=== PATIENT | male | born 1945 | race Two or more races ===

== ENCOUNTER 2020-10-02 11:05 | Outpatient (REF) | payer MEDICARE, SELFPAY | END 2020-10-02 11:06 | disposition home or self-care (01) | LOC: HO.LAB 11:05 | PROVIDERS: Visit Provider Internal Medicine | DX: Z13.89 Encounter for screening for other disorder (principal) ==

== ENCOUNTER 2022-03-17 11:41 | Emergency (ER) | payer MEDICARE, SELFPAY ==
[2022-03-17 11:57] VITALS: BP 156/72; PULSE 86; RESP 17; TEMP 36.6; O2SAT 97; BMI 26.6
[2022-03-17 12:33] LABS: Influenza A Negative (Negative); Influenza B2 Negative (Negative)
[2022-03-17 12:38] LABS: COVID-19 Test Negative (Negative)
--- NOTE | 2022-03-17 13:16 | ED.URI ---
HPI - URI/Sore Throat General Chief Complaint: Upper Respiratory Symptoms Stated Complaint: pollen in nose Time Seen by Provider: 03/17/22 13:16 Source: patient Mode of arrival: ambulatory History of Present Illness HPI Narrative: 76-year-old male with past medical history of bronchitis, COPD, GERD, BPH, anxiety, presenting to the ED complaining of polyp to right side of nose x2 weeks. Admits saw PCP last week who prescribed a nasal spray however patient denies symptomatic improvement. Reports mild SOB at night. Denies difficulty breathing, shortness of breath at present, trauma to face/nose, bleeding. Related Data Home Medications Medication Instructions Recorded Confirmed hydroxyzine HCl 10 mg tablet 10 mg PO TID 07/26/20 loratadine 10 mg tablet 10 mg PO DAILY 09/27/20 09/27/20 omeprazole 20 mg capsule,delayed 20 mg PO DAILY PRN 09/27/20 09/27/20 release Previous Rx's Medication Instructions Recorded ipratropium 20 mcg-albuterol 100 1 puff inhalation Q6H PRN 09/27/20 mcg/actuation mist for inhalation shortness of breath 30 days #4 (Combivent Respimat) grams lisinopril 10 mg tablet 10 mg PO DAILY #90 tabs 07/10/21 nortriptyline 10 mg capsule 10 mg PO BEDTIME #90 caps 12/10/21 Allergies Allergy/AdvReac Type Severity Reaction Status Date / Time aspirin [ASA] Allergy Unknown Rash Verified 03/17/22 11:57 Review of Systems Review of Systems: Constitutional: No Weight loss, No Fever, No Chills ENT/Mouth: No Ear Pain, + Nasal Congestion, +nasal polyp, No Sinus Pain, No Hoarseness, No sore throat, No Rhinorrhea, No Swallowing Difficulty Cardiovascular: No Chest Pain, No SOB Respiratory: No Cough, No Sputum, No Wheezing Gastrointestinal: No Nausea, No Vomiting, No Diarrhea, No Constipation, No Abdominal pain Genitourinary: No Dysuria, No Urinary Frequency, No Urinary Incontinence/retention Musculoskeletal: No joint pain, No Myalgias, No Joint Swelling Skin: No Skin Lesions, No rash Neuro: No Weakness, No Numbness, No Paresthesias Yes all other systems are reviewed and are negative PMFSH Past Medical History Attestation statement: The following information was validated with the patient. Surgical History History of appendectomy History of inguinal hernia repair History of prostatectomy Family History Family History Other Family history non-contributory Social History Social History Alcohol intake: never Advance Directives: No Advance Directives Information Provided: No Physical Exam Vital Signs: Vital Signs: Last Vital Signs Temp 97.8 F 03/17/22 11:57 Pulse 86 03/17/22 11:57 Resp 17 03/17/22 11:57 BP 156/72 H 03/17/22 11:57 Pulse Ox 97 03/17/22 11:57 O2 Del Method 03/17/22 11:57 BMI result Body Mass Index 26.6 Const: General: cooperative, healthy appearing and no acute distress Orientation/consciousness: patient oriented x3 Limitations: no limitations HEENT: Head: Yes normal to inspection and Yes atraumatic Ears: hearing grossly normal bilaterally General nose exam: Normal external nose present, Abnormal nasal septum present, no nasal discharge noted and Nasal polyp present on the right (large. No active bleeding) Face and sinus: Yes normal facial exam Mouth: Normal oral and palatal mucosa present Throat: Yes posterior oropharynx normal, Yes tonsils normal and Yes uvula midline Eyes: General: appearance normal, both eyes and all related structures EOM: EOMs intact bilaterally Neck: Neck: Yes normal visual inspection, Yes no meningeal signs, Yes trachea midline and No anterior neck swelling Resp: Effort & Inspection: normal respiratory effort, no nasal flaring, no respiratory distress and no stridor Auscultation: clear to auscultation bilaterally Cardio: Rate: regular rate Heart sounds: S1 normal heart sound present and S2 normal heart sound present Skin: Rashes: no rashes Wounds: no wounds Neuro: General: patient oriented x3, tone normal and no meningeal signs Gait exam (Neuro): Normal gait present Extrem: General: Yes normal to inspection MDM - URI/Sore Throat MDM Narrative Medical decision making narrative: 76-year-old male with past medical history of bronchitis, COPD, GERD, BPH, anxiety, presenting to the ED complaining of polyp to right side of nose x2 weeks. On exam vital signs stable, NAD, nontoxic appearing, large right-sided nasal polyp noted. No evidence of infection, no respiratory distress. Discussed with patient he needs to follow-up with ENT for likely polypectomy Encourage continued use of nasal spray and antihistamine Medical Records Attestation: I reviewed the patient's medical records. Lab Data Attestation: I reviewed the patient's lab results. Labs: Lab Results 03/17/22 03/17/22 Range/Units 12:06 12:06 COVID-19 (THOMAS) Negative (Negative) COVID-19 Clin Com See Note Influenza Type A (ALEX) Negative (Negative) Influenza Type B (ALEX) Negative (Negative) Influenza A & B Note See Note Discharge Plan Discharge Clinical Impression: Nasal polyps Patient Disposition: Home, Self-Care Instructions: Nasal Polyps (ED) Additional Instructions: Continue using previously prescribed nasal spray. In addition you should take Zyrtec or Claritin during the day. You really need to see an ear nose throat specialist, call tomorrow to start making appointments. If you develop and difficulty breathing, bleeding from the polyps please return to the ED Prescriptions: No Action lisinopril 10 mg tablet 10 mg PO DAILY Qty: 90 0RF nortriptyline 10 mg capsule 10 mg PO BEDTIME Qty: 90 0RF hydroxyzine HCl 10 mg tablet 10 mg PO TID omeprazole 20 mg capsule,delayed release(DR/EC) 20 mg PO DAILY PRN loratadine 10 mg tablet 10 mg PO DAILY Combivent Respimat 20-100 mcg/actuation mist 1 puff inhalation Q6H PRN (Reason: shortness of breath) 30 Days Qty: 4 12RF Referrals: Karla Haney MD [Physician] - Nat Clement PA [Physician Endocrinology Physician] - Freddie Gil MD [Physician] - Dayan Swain PA-C [Physician Endocrinology Physician] - John Wei [Physician] - Interventions: ED Discharge Assessment Last Done: 03/17/22 13:29 Discharge Date/Time: 03/17/22 13:30
== END 2022-03-17 13:30 | disposition home or self-care (01) ==
PROVIDERS: Emergency Provider Emergency Medicine Emergency Medical Services; PCP Internal Medicine
DX: J33.9 Nasal polyp, unspecified (principal); Z20.822 Contact with and (suspected) exposure to COVID-19; Z79.899 Other long term (current) drug therapy
CPT/HCPCS: 87502; 87635; 99282; 99283

== ENCOUNTER 2022-04-04 10:19 | Emergency (ER) | payer MEDICARE, SELFPAY ==
[2022-04-04 10:50] VITALS: BP 159/88; PULSE 96; RESP 16; TEMP 36.1; O2SAT 97; BMI 26.3
--- NOTE | 2022-04-04 11:00 | ED_ITS ---
HPI - General Adult General Chief complaint: General Medical Stated complaint: issue with nose Time Seen by Provider: 04/04/22 10:53 History of Present Illness HPI narrative: 76-year-old male with past medical history of bronchitis, COPD, GERD, BPH, anxiety, presenting to the ED complaining of polyp to right side of nose x5 weeks.? He was prescribed a nasal spray however patient denies symptomatic improvement.? Reports mild SOB at night.? Denies difficulty breathing, shortness of breath at present, trauma to face/nose, bleeding. Patient was seen here 03/17/2022, 3 weeks ago for the same complaint, at that time he was counseled to continue nasal spray and referred to Ear Nose Throat Patient tells me that he has an appointment with an Ear Nose Throat in spring from [place] but not until May 29, and his symptoms are worsening Related Data Home Medications Medication Instructions Recorded Confirmed hydroxyzine HCl 10 mg tablet 10 mg PO TID 07/26/20 loratadine 10 mg tablet 10 mg PO DAILY 09/27/20 09/27/20 omeprazole 20 mg capsule,delayed 20 mg PO DAILY PRN 09/27/20 09/27/20 release Previous Rx's Medication Instructions Recorded ipratropium 20 mcg-albuterol 100 1 puff inhalation Q6H PRN 09/27/20 mcg/actuation mist for inhalation shortness of breath 30 days #4 (Combivent Respimat) grams lisinopril 10 mg tablet 10 mg PO DAILY #90 tabs 07/10/21 nortriptyline 10 mg capsule 10 mg PO BEDTIME #90 caps 12/10/21 Allergies Allergy/AdvReac Type Severity Reaction Status Date / Time aspirin [ASA] Allergy Unknown Rash Verified 03/17/22 11:57 Review of Systems Constitutional: Constitutional: Denies body ache(s), Denies chills, Denies fatigue, Denies fever(s), Denies headache(s), Denies malaise and Denies weakness Eyes: Eyes: Denies diplopia ENT: Denies vertigo, Denies dizziness, Denies otalgia, Denies facial pain, Denies headache(s), Denies mouth pain, Denies nasal congestion, Denies nasal discharge, Reports nasal obstruction, Denies nasal trauma, Denies neck pain, Denies post nasal drip, Denies sinus pain, Denies sinus pressure, Denies sore throat and Denies throat swelling Cardiovascular: Cardiovascular: Denies chest pain, Denies syncope, Denies leg edema, Denies lightheadedness, Denies Loss of Consciousness, Denies palpitations and Denies dyspnea Respiratory: Respiratory: Denies chest congestion, Denies cough and Denies dyspnea Gastrointestinal: Gastrointestinal: Denies abdominal pain, Denies hematochezia, Denies constipation, Denies diarrhea and Denies vomiting Musculoskeletal: Musculoskeletal: Reports no additional musculoskeletal complaints and Denies neck pain Neurologic: Denies confusion, Denies vertigo, Denies dizziness, Denies syncope, Denies headache(s) and Denies weakness Psychiatric: Psychiatric: Denies anxiety, Denies confusion and Denies depression Endocrine: Endocrine: Denies fatigue and Denies palpitations Allergic/Immunologic: Allergic/Immunologic: Denies throat swelling PMFSH Past Medical History Medical History Anxiety Benign essential hypertension Benign prostatic hyperplasia Bronchitis COPD (chronic obstructive pulmonary disease) GERD without esophagitis Insomnia Overweight (BMI 25.0-29.9) Surgical History History of appendectomy History of inguinal hernia repair History of prostatectomy Family History Family History Other Family history non-contributory Social History Social History Alcohol intake: never Advance Directives: No Advance Directives Information Provided: Yes Physical Exam ED Vital Signs: Vital Signs - 24 hr 04/04/22 10:50 Temperature 97 F Pulse Rate 96 Respiratory Rate 16 Blood Pressure 159/88 H Pulse Oximetry 97 Oxygen Delivery Method Room Air BMI result Body Mass Index 26.3 Const General: No confusion Nutritional Appearance: well nourished Orientation/consciousness: No confusion Limitations: no limitations HENMT Head: Yes normal to inspection, Yes normocephalic and Yes atraumatic Ears: hearing grossly normal bilaterally, external ears normal, TM's normal bilaterally and EAC's normal General nose exam: Nasal polyp present on the right Face and sinus: Yes normal facial exam and Yes sinuses nontender Face images: 1. nasal polyp Mouth: Normal oral and palatal mucosa present Throat: Yes posterior oropharynx normal Eyes Conjunctivae: conjunctivae normal Pupils: Equal, round and reactive pupils present EOM: EOMs intact bilaterally Neck Neck: Yes full ROM, Yes no lymphadenopathy and Yes supple Resp Effort & Inspection: normal respiratory effort and able to speak in complete sentences Auscultation: clear to auscultation bilaterally, no crackles, no rales, no rhonchi and no wheezes Cardio Rate: regular rate Rhythm: regular rhythm Heart sounds: S1 normal heart sound present and S2 normal heart sound present GI Inspection: Yes normal to inspection Palpation (GI): Soft to palpation, nontender, no guarding and not rigid Percussion: Yes normal to percussion Auscultation: normal bowel sounds Skin General skin exam: no rashes or lesions noted Neuro General: No confusion Cranial nerves: Yes Equal, round and reactive pupils present Extrem General: Yes normal to inspection and Yes full ROM Psych Appearance: grossly normal Affect: normal affect Attitude: cooperative Thought process: Normal thought process present Course Course Course Narrative: 76-year-old male with worsening right-sided nasal polyps who is here for help to get an Ear Nose Throat referral, as the referral he has is not until the end of April On exam, patient has stable vitals, is well appearing, has a right nasal polyp that is not bleeding. We were able to obtain an Ear Nose Throat appointment with today at 13:00 Insurance information was given to Dr. Wei's office via nurse Patient was given directions to their office Discharge Plan Discharge Clinical Impression: Nasal cavity polyp Patient Disposition: Home, Self-Care Additional Instructions: Please go to ENT Dr Wei's office here in [place] today at 1 pm. Please return to the emergency room for any new or concerning symptoms Prescriptions: No Action lisinopril 10 mg tablet 10 mg PO DAILY Qty: 90 0RF nortriptyline 10 mg capsule 10 mg PO BEDTIME Qty: 90 0RF hydroxyzine HCl 10 mg tablet 10 mg PO TID omeprazole 20 mg capsule,delayed release(DR/EC) 20 mg PO DAILY PRN loratadine 10 mg tablet 10 mg PO DAILY Combivent Respimat 20-100 mcg/actuation mist 1 puff inhalation Q6H PRN (Reason: shortness of breath) 30 Days Qty: 4 12RF Interventions: ED Discharge Assessment Last Done: 04/04/22 11:40 Discharge Date/Time: 04/04/22 11:42
== END 2022-04-04 11:42 | disposition home or self-care (01) ==
PROVIDERS: Emergency Provider Emergency Medicine; PCP Internal Medicine
DX: J33.9 Nasal polyp, unspecified (principal); Z79.899 Other long term (current) drug therapy
CPT/HCPCS: 99282

== ENCOUNTER 2023-08-14 15:06 | Emergency (ER) | payer MEDICARE, SELFPAY ==
--- NOTE | ~2023-08-14 | US_ITS ---
EXAMINATION: ULTRASOUND OF THE ACHILLES TENDON CLINICAL INFORMATION: Single gastrocnemius tear/Achilles tendon rupture COMPARISON: None available. TECHNIQUE: Ultrasound of the area of clinical concern was performed. FINDINGS: The Achilles tendon appears normal without evidence of tear. There is DVT present with thrombus in the gastrocnemius vein. US/US extremity nonvascular IMPRESSION: 1. The Achilles tendon appears normal. 2. There is DVT in the gastrocnemius vein.
[2023-08-14 15:40] VITALS: BP 155/74; PULSE 95; RESP 18; TEMP 36.9; O2SAT 96; BMI 26.6
--- NOTE | 2023-08-14 15:43 | ED.GENADULT ---
HPI - General Adult General Chief complaint: Extremity Injury, Lower Stated complaint: left leg pain Time Seen by Provider: 08/14/23 16:56 Source: patient, RN notes reviewed and old records reviewed Mode of arrival: ambulatory History of Present Illness HPI narrative: 77-year-old male with a past medical history of anxiety, insomnia, GERD, COPD, HTN, bronchitis, presenting to the ED complaining of left calf pain and swelling s/p chasing dog this morning and striking leg outstretched on guardrail. Denies injury to other area, trauma or LOC. Has been minimally ambulatory since incident. Denies numbness, tingling, weakness Onset (ago): hour(s) Related Data Home Medications Medication Instructions Recorded Confirmed hydroxyzine HCl 10 mg tablet 10 mg PO TID 07/26/20 loratadine 10 mg tablet 10 mg PO DAILY 09/27/20 09/27/20 omeprazole 20 mg capsule,delayed 20 mg PO DAILY PRN 09/27/20 09/27/20 release Previous Rx's Medication Instructions Recorded ipratropium 20 mcg-albuterol 100 1 puff inhalation Q6H PRN 09/27/20 mcg/actuation mist for inhalation shortness of breath 30 days #4 (Combivent Respimat) grams lisinopril 10 mg tablet 10 mg PO DAILY #90 tabs 07/10/21 nortriptyline 10 mg capsule 10 mg PO BEDTIME #90 caps 12/10/21 Allergies Allergy/AdvReac Type Severity Reaction Status Date / Time aspirin [ASA] Allergy Unknown Rash Verified 08/14/23 15:45 Review of Systems Review of Systems: Constitutional: No Fever, No Chills ENT/Mouth: No Ear Pain, No Nasal Congestion, No sore throat Cardiovascular: No Chest Pain, No SOB Respiratory: No Cough Gastrointestinal: No Nausea, No Vomiting, No Abdominal pain Musculoskeletal: + joint pain, No Myalgias, + Joint Swelling Skin: No Skin Lesions, No rash Neuro: No Weakness, No Numbness, No Paresthesias Yes all other systems are reviewed and are negative Constitutional: Constitutional: Reports as per [facility] Past Medical History Attestation statement: The following information was validated with the patient. Source: old records reviewed Medical History Anxiety Insomnia Overweight (BMI 25.0-29.9) Benign prostatic hyperplasia GERD without esophagitis COPD (chronic obstructive pulmonary disease) Benign essential hypertension Bronchitis Surgical History History of inguinal hernia repair History of prostatectomy History of appendectomy Family History Family History Other Family history non-contributory Social History Social History Alcohol intake: never Advance Directives: No Advance Directives Information Provided: No Physical Exam ED Vital Signs: Vital Signs - 24 hr 08/14/23 15:40 Temperature 98.5 F Pulse Rate 95 Respiratory Rate 18 Blood Pressure 155/74 H Pulse Oximetry 96 Oxygen Delivery Method Room Air BMI result Body Mass Index 26.6 Const General: cooperative, healthy appearing, no acute distress, alert and awake Orientation/consciousness: patient oriented x3 Limitations: no limitations HENMT Head: Yes normal to inspection and Yes atraumatic Ears: hearing grossly normal bilaterally General nose exam: Normal external nose present Face and sinus: Yes normal facial exam Eyes General: appearance normal, both eyes and all related structures EOM: EOMs intact bilaterally Neck Neck: Yes normal visual inspection and Yes no meningeal signs Resp Effort & Inspection: normal respiratory effort and no respiratory distress Cardio Rate: regular rate Peripheral pulses: Peripheral pulses 2+ throughout Skin Rashes: no rashes Wounds: no wounds Neuro General: patient oriented x3, tone normal and no meningeal signs Cranial nerves: Yes CN's II-XII intact bilaterally Gait exam (Neuro): Normal gait present Extrem Other: Left knee and anterior tib/fib/ankle and foot nontender. Left calf with noted swelling and tenderness > proximal region. No pitting edema. No erythema/warmth or crepitus. Compartments soft. Neurovascular intact distally Achilles tendon nontender. Negative Richard test. Course Course Course Narrative: This is an RME: Additional HPI, ROS, PE not included below will be deferred to primary provider. 77 year old male presents w/ left calf pain s/p jumping while chasing his dog patient didnt fall. Reports 06/08 pain Plan- [facility] 190--US extremity nonvascular IMPRESSION: 1. The Achilles tendon appears normal. 2. There is DVT in the gastrocnemius vein. -labs reassuring > will initiate patient on Eliquis starter pack with hematology follow-up Results discussed with patient including worrisome signs and symptoms and strict return precautions, and when to return to the emergency department. They verbalized understanding and feel safe for discharge at this time. Medical Decision Making Medical Decision Making [facility] Narrative: 77-year-old male with a past medical history of anxiety, insomnia, GERD, COPD, HTN, bronchitis, presenting to the ED complaining of left calf pain and swelling s/p chasing dog this morning and striking leg outstretched on guardrail. On exam vital signs stable, NAD, nontoxic appearing, physical exam as noted above. Concern for gastrocnemius muscle tear vs Achilles tendon injury vs MSK pain/strain. Lower suspicion for fracture. Unlikely DVT with mechanism of injury. Compartments soft. No evidence of compartment syndrome at this time or cellulitis Plan: Ultrasound Please refer to course for remaining clinical decision making, interpretation of labs/imaging results, and discussions with consultants and/or family members. Differential Diagnosis Differential Diagnoses: The differential diagnosis associated with the presentation includes As above Lab Data [facility] Lab Attestation statement: I reviewed the patient's lab results. 08/14/23 18:22 08/14/23 18:22 Labs: Lab Results 08/14/23 Range/Units 18:22 WBC 7.2 (4.8-10.8) X10*3/uL RBC 4.52 L (4.60-5.80) X10*6/uL Hgb 13.0 L (14.0-18.0) g/dl Hct 39.0 L (42.0-52.0) % MCV 86.3 (80.0-98.0) fL MCH 28.8 (27.0-33.0) pg MCHC 33.3 (31.0-36.0) g/dl RDW 12.9 (11.0-16.0) % Plt Count 197 (160-400) X10*3/uL MPV 9.1 L (9.4-12.4) fL Immature Gran % (Auto) 0.3 (0.0-0.4) % Neut % (Auto) 59.8 (45-73) % Lymph % (Auto) 29.6 (20-40) % [place] % (Auto) 8.4 (2-11) % Eos % (Auto) 1.5 (0-4) % Baso % (Auto) 0.4 (0-2) % Lymph # (Auto) 2.1 (1.2-4.9) X10*3/uL [place] # (Auto) 0.6 (0.1-1.2) X10*3/uL Eos # (Auto) 0.1 (0.0-0.4) X10*3/uL Baso # (Auto) 0.0 (0.0-0.2) X10*3/uL Abs Immat Gran (auto) 0.02 (0.00-0.03) X10*3/uL Absolute Neuts (auto) 4.3 (2.0-8.3) x10*3/uL Absolute Nucleated RBC 0.000 (0.0-0.012) X10*3/uL Nucleated RBC % (auto) 0.0 (0.0-0.2) /100WBC PT 11.5 (11.1-13.3) SEC INR 0.9 (0.9-1.1) APTT 28.4 (26.0-36.4) SEC Sodium 141 (135-145) mmol/L Potassium 4.4 (3.3-5.1) mmol/L Chloride 106 (96-108) mmol/L Carbon Dioxide 27 (22-29) mmol/L Anion Gap 12 (12-20) BUN 14 (9-16) mg/dL Creatinine 1.17 (0.5-1.4) mg/dL Estim Creat Clear Calc 50.2 Estimated GFR > 60 Random Glucose 92 (60-115) mg/dL Calcium 9.7 (8.4-10.2) mg/dL Independent Interpretation I performed an independent interpretation of an: Ultrasound Radiology Impression Discussion of test interpretation with radiology: I have reviewed the radiologist's reading. External Record Review External record reviewed: Inpatient record, Office record, Outpatient record, Prior outpatient labs, Prior outpatient radiology, Primary care record and Outside ED record Tests considered The following testing was considered but not selected: As above Prescription Management I considered prescription management with: Pain Medication Discharge Plan Discharge Clinical Impression: Pain of left calf, Injury of leg, left Patient Disposition: Still a Patient Prescriptions: No Action lisinopril 10 mg tablet 10 mg PO DAILY Qty: 90 0RF nortriptyline 10 mg capsule 10 mg PO BEDTIME Qty: 90 0RF hydroxyzine HCl 10 mg tablet 10 mg PO TID omeprazole 20 mg capsule,delayed release(DR/EC) 20 mg PO DAILY PRN loratadine 10 mg tablet 10 mg PO DAILY Combivent Respimat 20-100 mcg/actuation mist 1 puff inhalation Q6H PRN (Reason: shortness of breath) 30 Days Qty: 4 12RF
[2023-08-14 18:35] LABS: MANUAL DIFF FLAG NO
[2023-08-14 18:47] LABS: Basophils Percent Auto 0.4 % (0-2); Eosinophils Absolute Auto 0.1 X10*3/uL (0.0-0.4); Eosinophils Percent Auto 1.5 % (0-4); Imm Gran Abs Auto 0.02 X10*3/uL (0.00-0.03); Imm Gran Pct Auto 0.3 % (0.0-0.4); Lymphocytes Absolute Auto 2.1 X10*3/uL (1.2-4.9); Lymphocytes Percent Auto 29.6 % (20-40); Mean Corpuscular HGB Conc 33.3 g/dl (31.0-36.0); Mean Corpuscular Hemoglobin 28.8 pg (27.0-33.0); Mean Corpuscular Volume 86.3 fL (80.0-98.0); Mean Platelet Volume 9.1 fL (9.4-12.4); Monocytes Absolute Auto 0.6 X10*3/uL (0.1-1.2); Monocytes Percent Auto 8.4 % (2-11); Neutrophils Absolute Auto 4.3 x10*3/uL (2.0-8.3); Neutrophils Percent Auto 59.8 % (45-73); Platelet Count 197 X10*3/uL (160-400); Red Blood Count 4.52 X10*6/uL (4.60-5.80); Red Cell Distribution Width 12.9 % (11.0-16.0); White Blood Count 7.2 X10*3/uL (4.8-10.8)
[2023-08-14 18:50] LABS: Anion Gap 12 (12-20); Blood Urea Nitrogen 14 mg/dL (9-16); Calcium 9.7 mg/dL (8.4-10.2); Carbon Dioxide 27 mmol/L (22-29); Chloride 106 mmol/L (96-108); Creatinine Clr Calc Pharmacy 50.2; Estimated Glomerular Filt Rate > 60; Glucose Random 92 mg/dL (60-115); Potassium 4.4 mmol/L (3.3-5.1); Sodium 141 mmol/L (135-145)
[2023-08-14 18:53] LABS: INTERNATIONAL NORM RATIO 0.9 (0.9-1.1); Prothrombin Time 11.5 SEC (11.1-13.3)
[2023-08-14 18:55] LABS: Partial Thromboplastin Time 28.4 SEC (26.0-36.4)
[2023-08-14] MEDS: Apixaban 5 MG TABLET 10 MG PO (19:21)
== END 2023-08-14 19:29 | disposition home or self-care (01) ==
PROVIDERS: Physician Assistant; Emergency Provider Emergency Medicine; PCP Internal Medicine
DX: M79.662 Pain in left lower leg (principal); R60.0 Localized edema; Z79.899 Other long term (current) drug therapy
CPT/HCPCS: 36415; 76882; 80048; 85025; 85610; 85730; 99282; 99284

== ENCOUNTER 2023-08-24 10:19 | Emergency (ER) | payer MEDICARE, SELFPAY ==
[2023-08-24 10:25] VITALS: BP 142/68; PULSE 78; RESP 16; TEMP 35.9; O2SAT 98; BMI 27.4
[2023-08-24 10:58] VITALS: BP 111/59; PULSE 88; RESP 16; TEMP 36.4; O2SAT 98
--- NOTE | 2023-08-24 11:00 | PC.NURSE ---
a&ox3, vss and up to date. pt was seen last week d/t blood clot in left calf - started on eloquis. pt comes in today d/t left foot bruising. erythema noted to inside of pt's foot. swelling/warm to touch on left calf. denies fever/chills/sob. pt states difficulty ambulating. respirations even and unlabored.
--- NOTE | 2023-08-24 11:15 | PC.NURSE ---
20g IV placed in right AC w/o difficulty - labs drawn and sent to lab.
[2023-08-24 11:27] LABS: MANUAL DIFF FLAG NO
--- NOTE | 2023-08-24 11:27 | ED_ITS ---
HPI - Extremity Problem General Chief complaint: Extremity Problem Stated complaint: Pain in leg - blood clot Time Seen by Provider: 08/24/23 11:15 Source: patient Mode of arrival: ambulatory Limitations: no limitations History of Present Illness HPI Narrative: 77 year old male with with pmhx significant for anxiety, GERD, COPD, BPH, recently diagnosed DVT of left lower extremity (started on Eliquis) presents to the ED today with bruising to his left foot x3 days. Reports noticing bruising to his left heel/inner foot 3 days ago. It has not been worsening or changing. Denies pain to the area. Has been able to ambulate without discomfort. Reports taking Eliquis daily since diagnosis of DVT 10 days ago. He has no other complaints. Denies chest pain or shortness of breath. States that his left calf pain has been improving over the last week after starting Eliquis. Denies fever, chills, chest pain, shortness of breath. Related Data Home Medications Medication Instructions Recorded Confirmed hydroxyzine HCl 10 mg tablet 10 mg PO TID 07/26/20 loratadine 10 mg tablet 10 mg PO DAILY 09/27/20 09/27/20 omeprazole 20 mg capsule,delayed 20 mg PO DAILY PRN 09/27/20 09/27/20 release Previous Rx's Medication Instructions Recorded ipratropium 20 mcg-albuterol 100 1 puff inhalation Q6H PRN 09/27/20 mcg/actuation mist for inhalation shortness of breath 30 days #4 (Combivent Respimat) grams lisinopril 10 mg tablet 10 mg PO DAILY #90 tabs 07/10/21 nortriptyline 10 mg capsule 10 mg PO BEDTIME #90 caps 12/10/21 apixaban 5 mg (74 tabs) tablets in 5 mg PO BID #74 ea 08/14/23 a dose pack (Eliquis DVT-PE Treat 30D Start) Allergies Allergy/AdvReac Type Severity Reaction Status Date / Time aspirin [ASA] Allergy Unknown Rash Verified 08/24/23 10:30 Review of Systems 2 Review of Systems: Constitutional: No fever, chills, fatigue, night sweats, weight changes ENT/Mouth: No ear pain, hearing loss, nasal congestion, sinus pain, rhinorrhea, sore throat Eyes: No eye pain, swelling, redness, vision changes, discharge Cardio: No chest pain, palpitations, BENITEZ, orthopnea, peripheral edema Pulm: No SOB, cough, sputum, wheezing, dyspnea, hemoptysis GI: No nausea, vomiting, hematemesis, abdominal pain, diarrhea, constipation, hematochezia, melena : No irregular bleeding, dysuria, frequency, urgency, hesitancy, hematuria, flank pain, urinary flow changes, urinary incontinence or retention MSK: No back pain, neck pain, joint pain, myalgias, +bruising to left foot Skin: No lesions, rashes Neuro: No weakness, numbness, paresthesias, LOC, dizziness, headache All other systems reviewed and are negative. [facility] Past Medical History Attestation statement: The following information was validated with the patient. Source: old records reviewed and nursing notes reviewed Medical History Anxiety Insomnia Overweight (BMI 25.0-29.9) Benign prostatic hyperplasia GERD without esophagitis COPD (chronic obstructive pulmonary disease) Benign essential hypertension Bronchitis Surgical History History of inguinal hernia repair History of prostatectomy History of appendectomy Family History Family History Other Family history non-contributory Social History Alcohol intake: never Smoked in Last 30 Days: No Use of substances other than those prescribed or required for medical reasons: No Advance Directives: No Advance Directives Information Provided: Yes Physical Exam 2 Vital Signs: Vital Signs: Last Vital Signs Temp 97.6 F 08/24/23 10:58 Pulse 88 08/24/23 10:58 Resp 16 08/24/23 10:58 BP 111/59 L 08/24/23 10:58 Pulse Ox 98 08/24/23 10:58 O2 Del Method Room Air 08/24/23 10:58 BMI result Body Mass Index 27.4 Vital signs stable Const: General: cooperative, healthy appearing, comfortable, no acute distress, alert and awake Orientation/consciousness: patient oriented x3 L imitations: no limitations HEENT: Ears: hearing grossly normal bilaterally General nose exam: Normal external nose present Eyes: General: appearance normal, both eyes and all related structures C onjunctivae: conjunctivae normal Sclerae: sclerae normal Pupils: Equal, round and reactive pupils present Neck: Neck: Yes normal visual inspection Resp: Effort & Inspection: normal respiratory effort Auscultation: clear to auscultation bilaterally Cardio: Rate: regular rate Rhythm: regular rhythm Peripheral pulses: p osterior tibial pulses present and dorsalis pedis present Skin: Other: + refer to photos below + minimal red/purple ecchymoses to the l eft medial heel/inner aspect of foot. Ecchymoses noted under the left lateral malleolus. No palpable warmth, fluctuance. No hematoma. General skin exam: no rashes or lesions noted Neuro: General: patient oriented x3, gait normal and moves all extremities Cranial nerves: Yes CN's II-XII intact bilaterally and Yes Equal, round and reactive pupils present Extrem: Other: + refer to photos above. + No overlying erythema, warrant, cellul itic changes noted to left calf. Minimal left calf tenderness secondary to known DVT. No tenderness to palpation over the left lateral malleolus, medial malleolus or base of 5th metatarsal. 2+ DP/PT pulses bilaterally. Ambulating with steady gait. Unassisted. General: Yes normal to inspection and Yes full ROM Course Course Course Narrative: 1242-- CBC without leukocytosis. Chronically anemic, H&H stable when compared to priors. INR 1.4 on Eliquis. Chemistry without acute electrolyte abnormalities requiring intervention. > patient's presentation is consistent with superficial bruising/blood pooling secondary to starting Eliquis. He is not complaining of any pain. Left calf pain has been improving each day with treatment. I am not concerned with further clot. His exam is unremarkable. He has 2+ DP and PT pulses. I feel comfortable discharging patient home with strict return precautions. Discussed worrisome signs and symptoms. All questions answered at this time. Patient is agreeable disposition and stable for discharge. Medical Decision Making Medical Decision Making MDM Narrative: 77 year old male with with pmhx significant for anxiety, GERD, COPD, BPH, recently diagnosed DVT of left lower extremity (started on Eliquis) presents to the ED today with bruising to his left foot x3 days. Vital signs are stable. Afebrile. He is nontoxic appearing in no acute distress. On exam, there is no overlying erythema, warmth, or cellulitic changes noted to left calf. Minimal left calf tenderness secondary to known DVT. No tenderness to palpation over the left lateral malleolus, medial malleolus or base of 5th metatarsal. 2+ DP/PT pulses bilaterally. Ambulating with steady gait. Unassisted. Clinical concern for ecchymoses secondary to Eliquis use. Unlikely acute DVT, arterial occlusion, nv compromise, threat to limb. Plan at this time is to obtain basic labs and re-evaluation. Ultrasound of the left lower extremity and imaging is not warranted at this time. Differential Diagnosis Differential Diagnoses: The differential diagnosis associated with the presentation includes As above. Admission/Observation Not indicated. Lab Data MDM Lab Attestation statement: I reviewed the patient's lab results. As above. 08/24/23 11:15 08/24/23 11:15 Labs: Lab Results 08/24/23 Range/Units 11:15 WBC 6.0 (4.8-10.8) X10*3/uL RBC 4.47 L (4.60-5.80) X10*6/uL Hgb 13.0 L (14.0-18.0) g/dl Hct 38.5 L (42.0-52.0) % MCV 86.1 (80.0-98.0) fL MCH 29.1 (27.0-33.0) pg MCHC 33.8 (31.0-36.0) g/dl RDW 12.9 (11.0-16.0) % Plt Count 192 (160-400) X10*3/uL MPV 9.0 L (9.4-12.4) fL Immature Gran % (Auto) 0.3 (0.0-0.4) % Neut % (Auto) 64.2 (45-73) % Lymph % (Auto) 25.1 (20-40) % [place] % (Auto) 8.9 (2-11) % Eos % (Auto) 1.2 (0-4) % Baso % (Auto) 0.3 (0-2) % Lymph # (Auto) 1.5 (1.2-4.9) X10*3/uL [place] # (Auto) 0.5 (0.1-1.2) X10*3/uL Eos # (Auto) 0.1 (0.0-0.4) X10*3/uL Baso # (Auto) 0.0 (0.0-0.2) X10*3/uL Abs Immat Gran (auto) 0.02 (0.00-0.03) X10*3/uL Absolute Neuts (auto) 3.8 (2.0-8.3) x10*3/uL Absolute Nucleated RBC 0.000 (0.0-0.012) X10*3/uL Nucleated RBC % (auto) 0.0 (0.0-0.2) /100WBC PT 16.9 H D (11.1-13.3) SEC INR 1.4 H (0.9-1.1) Sodium 141 (135-145) mmol/L Potassium 4.0 (3.3-5.1) mmol/L Chloride 106 (96-108) mmol/L Carbon Dioxide 29 (22-29) mmol/L Anion Gap 10 L (12-20) BUN 17 H (9-16) mg/dL Creatinine 1.30 (0.5-1.4) mg/dL Estim Creat Clear Calc 45.1 Estimated GFR 54 Random Glucose 99 (60-115) mg/dL Calcium 9.3 (8.4-10.2) mg/dL External Record Review External record reviewed: Inpatient record Critical Care Time Critical Care Time Critical Care Time: No Discharge Plan Discharge Clinical Impression: Superficial bruising of ankle Patient Disposition: Home, Self-Care Additional Instructions: Your lab workup today was normal. The bruising noted to your left heel/ankle is likely due to starting a blood thinner. Continue taking Eliquis as directed. Keep your appointment with your vascular doctor on 09/12/2023. Additionally follow up with your PCP as scheduled. If symptoms persist or worsen or if you develop new bruising on your body or have uncontrollable bleeding return to the emergency department. In the case of an emergency call 911. Prescriptions: No Action lisinopril 10 mg tablet 10 mg PO DAILY Qty: 90 0RF nortriptyline 10 mg capsule 10 mg PO BEDTIME Qty: 90 0RF Eliquis DVT-PE Treat 30D Start 5 mg (74 tabs) tablets,dose pack 5 mg PO BID Qty: 74 0RF hydroxyzine HCl 10 mg tablet 10 mg PO TID omeprazole 20 mg capsule,delayed release(DR/EC) 20 mg PO DAILY PRN loratadine 10 mg tablet 10 mg PO DAILY Combivent Respimat 20-100 mcg/actuation mist 1 puff inhalation Q6H PRN (Reason: shortness of breath) 30 Days Qty: 4 12RF Interventions: ED Discharge Assessment Last Done: 08/24/23 12:40 Discharge Date/Time: 08/24/23 12:44
[2023-08-24 11:28] LABS: Basophils Percent Auto 0.3 % (0-2); Eosinophils Absolute Auto 0.1 X10*3/uL (0.0-0.4); Eosinophils Percent Auto 1.2 % (0-4); Hematocrit 38.5 % (42.0-52.0); Imm Gran Abs Auto 0.02 X10*3/uL (0.00-0.03); Imm Gran Pct Auto 0.3 % (0.0-0.4); Lymphocytes Absolute Auto 1.5 X10*3/uL (1.2-4.9); Lymphocytes Percent Auto 25.1 % (20-40); Mean Corpuscular HGB Conc 33.8 g/dl (31.0-36.0); Mean Corpuscular Hemoglobin 29.1 pg (27.0-33.0); Mean Corpuscular Volume 86.1 fL (80.0-98.0); Monocytes Absolute Auto 0.5 X10*3/uL (0.1-1.2); Monocytes Percent Auto 8.9 % (2-11); Neutrophils Absolute Auto 3.8 x10*3/uL (2.0-8.3); Neutrophils Percent Auto 64.2 % (45-73); Platelet Count 192 X10*3/uL (160-400); Red Blood Count 4.47 X10*6/uL (4.60-5.80); Red Cell Distribution Width 12.9 % (11.0-16.0)
[2023-08-24 11:34] LABS: INTERNATIONAL NORM RATIO 1.4 (0.9-1.1); Prothrombin Time 16.9 SEC (11.1-13.3)
[2023-08-24 11:55] LABS: Anion Gap 10 (12-20); Blood Urea Nitrogen 17 mg/dL (9-16); Calcium 9.3 mg/dL (8.4-10.2); Carbon Dioxide 29 mmol/L (22-29); Chloride 106 mmol/L (96-108); Creatinine Clr Calc Pharmacy 45.1; Estimated Glomerular Filt Rate 54; Glucose Random 99 mg/dL (60-115); Sodium 141 mmol/L (135-145)
== END 2023-08-24 12:44 | disposition home or self-care (01) ==
PROVIDERS: Emergency Provider Emergency Medicine; PCP Internal Medicine
DX: S90.02XA Contusion of left ankle, initial encounter (principal); X58.XXXA Exposure to other specified factors, initial encounter; Y93.9 Activity, unspecified; Y92.9 Unspecified place or not applicable; Y99.9 Unspecified external cause status; Z86.718 Personal history of other venous thrombosis and embolism; Z79.01 Long term (current) use of anticoagulants; Z79.899 Other long term (current) drug therapy
CPT/HCPCS: 36415; 80048; 85025; 85610; 99283; 99284

== ENCOUNTER → 2023-09-12 11:20 | Outpatient (BNV) | payer MEDICARE, SELFPAY | PROVIDERS: PCP Internal Medicine; Visit Provider Internal Medicine Medical Oncology | DX: I82.492 Acute embolism and thrombosis of other specified deep vein of left lower extremity (principal) | CPT/HCPCS: 99204; 99213 ==

== ENCOUNTER 2023-11-24 10:36 | Outpatient (REF) | payer OTHER, SELFPAY ==
--- NOTE | ~2023-11-24 | US_ITS ---
EXAMINATION: US VENOUS ULTRASOUND WITH DOPPLER LOWER EXTREMITY, LEFT CLINICAL INFORMATION: Follow-up on left leg DVT. COMPARISON: Ultrasound extremity nonvascular 08/14/2023. TECHNIQUE: Ultrasound of the deep veins is performed from the hip to the calf with compression sonography and color and pulse Doppler assessment. Spectral analysis with color-flow imaging is performed. FINDINGS: There is normal venous compression and respiratory variation and augmented flow. The visualized common femoral vein, superficial femoral vein, profunda femoral vein, popliteal vein, and the trifurcation region shows no evidence of deep venous thrombosis. There is no significant popliteal fossa cyst. The soft tissues are normal. If the patient's symptoms persist, followup ultrasound in 5 days 7 days might be of value to exclude proximal propagation from a non-visualized calf vein. US/US venous duplex LE LT IMPRESSION: No DVT demonstrated in the left lower extremity. Previously visualized DVT in the gastrocnemius vein on the previous exam 08/14/2020 appears resolved.
== END 2023-11-24 10:37 | disposition home or self-care (01) ==
LOC: HO.US 10:36
PROVIDERS: PCP Internal Medicine; Visit Provider Internal Medicine Medical Oncology
DX: I82.402 Acute embolism and thrombosis of unspecified deep veins of left lower extremity (principal)
CPT/HCPCS: 93971

== ENCOUNTER 2024-08-16 11:25 | Emergency (ER) | payer OTHER, SELFPAY ==
--- NOTE | ~2024-08-16 | CT_ITS ---
EXAMINATION: CT HEAD WITHOUT CONTRAST CT CERVICAL SPINE WITHOUT CONTRAST CLINICAL INFORMATION: Fall. Injury. COMPARISON: Head CT dated October 12, 2016. No prior CT scan of the cervical spine. TECHNIQUE: CT of the head and cervical spine were performed without intravenous contrast. Multiplanar reformats were rendered and reviewed. This CT examination was performed using dose optimization techniques as appropriate, variously including the following: *Automated exposure control *Adjustment of mA and/or kV according to patient size (this includes techniques or standardized protocols for targeted exams where dose is matched to indication/reason for exam; i.e. extremities or head) *Use of iterative reconstruction technique DLP: 1064 mGy-cm. FINDINGS: CT head: No intracranial hemorrhage, large infarction, or mass lesion is seen. Age-appropriate cortical atrophy and mild bilateral chronic periventricular white matter ischemic change. No extra-axial collection is appreciated. The ventricles are normal in size and configuration without evidence of hydrocephalus. The visualized paranasal sinuses and mastoid air cells are clear. Nasal septal spur protruding toward the left. CT cervical spine: The vertebral body heights appear maintained. No cervical spine fracture is seen. The cervical alignment appears normal. Mild degenerative change and mild bilateral neuroforaminal narrowing most notable at C3-C7. The paraspinal soft tissues appear within normal limits. The partially imaged lung apices appear clear. CT/CT head/brain wo IV con IMPRESSION: CT head: No acute intracranial finding. CT cervical spine: No cervical spine fracture or traumatic malalignment identified. Electronically signed by: Ed Javier MD 08/16/2024 04:55 PM [facility]
--- NOTE | ~2024-08-16 | XR_ITS ---
EXAMINATION: LEFT SHOULDER, RIGHT KNEE CLINICAL INFORMATION: Pain COMPARISON: None available. TECHNIQUE: 3 views left shoulder, 4 views right knee FINDINGS: Left shoulder: Some minimal degenerative changes are present at the glenohumeral joint and AC joint. No fractures or dislocations. No calcifications seen in the rotator cuff. Right knee: There is some minimal narrowing of the medial compartment. Trace knee joint effusion is present. There is no chondrocalcinosis, fractures or dislocations XR/XR knee RT 4V IMPRESSION: Minimal degenerative changes in the left shoulder and right knee. Electronically signed by: Gómez Crowell MD 08/16/2024 02:43 PM [facility]
--- NOTE | ~2024-08-16 | XR_ITS ---
EXAMINATION: LEFT SHOULDER, RIGHT KNEE CLINICAL INFORMATION: Pain COMPARISON: None available. TECHNIQUE: 3 views left shoulder, 4 views right knee FINDINGS: Left shoulder: Some minimal degenerative changes are present at the glenohumeral joint and AC joint. No fractures or dislocations. No calcifications seen in the rotator cuff. Right knee: There is some minimal narrowing of the medial compartment. Trace knee joint effusion is present. There is no chondrocalcinosis, fractures or dislocations XR/XR shoulder LT min 2V IMPRESSION: Minimal degenerative changes in the left shoulder and right knee. Electronically signed by: Gómez Crowell MD 08/16/2024 02:43 PM [facility]
--- NOTE | ~2024-08-16 | XR_ITS ---
EXAMINATION: XR HAND/WRIST, LEFT CLINICAL INFORMATION: fall COMPARISON: None available. TECHNIQUE: PA, lateral, and oblique views of the left hand and wrist. FINDINGS: No acute cortical disruption or malalignment. No lytic or blastic lesions. No subcutaneous emphysema. No metallic or radiopaque foreign body. XR/XR hand wrist LT IMPRESSION: No acute fracture or dislocation. Negative. Electronically signed by: Lazaro Luu MD 08/16/2024 02:19 PM [facility]
--- NOTE | ~2024-08-16 | XR_ITS ---
EXAMINATION: XR ELBOW, LEFT CLINICAL INFORMATION: fall COMPARISON: None available. TECHNIQUE: AP, lateral, and oblique views of the left elbow. FINDINGS: Cortical irregularity/step off in the anterior margin of the radial head/neck junction of the radius variously in the lateral projection. No malalignment. There is a well-corticated ossific flake adjacent to the medial epicondyle. No lytic or blastic lesions. XR/XR elbow LT 2V IMPRESSION: Questionable subtle nondisplaced radial head fracture. Recommend dedicated radial head views. Probable avulsion fracture medial AP condyle, left humerus. Electronically signed by: Lazaro Luu MD 08/16/2024 02:23 PM EST
--- NOTE | ~2024-08-16 | CT_ITS ---
EXAMINATION: CT HEAD WITHOUT CONTRAST CT CERVICAL SPINE WITHOUT CONTRAST CLINICAL INFORMATION: Fall. Injury. COMPARISON: Head CT dated October 12, 2016. No prior CT scan of the cervical spine. TECHNIQUE: CT of the head and cervical spine were performed without intravenous contrast. Multiplanar reformats were rendered and reviewed. This CT examination was performed using dose optimization techniques as appropriate, variously including the following: *Automated exposure control *Adjustment of mA and/or kV according to patient size (this includes techniques or standardized protocols for targeted exams where dose is matched to indication/reason for exam; i.e. extremities or head) *Use of iterative reconstruction technique DLP: 1064 mGy-cm. FINDINGS: CT head: No intracranial hemorrhage, large infarction, or mass lesion is seen. Age-appropriate cortical atrophy and mild bilateral chronic periventricular white matter ischemic change. No extra-axial collection is appreciated. The ventricles are normal in size and configuration without evidence of hydrocephalus. The visualized paranasal sinuses and mastoid air cells are clear. Nasal septal spur protruding toward the left. CT cervical spine: The vertebral body heights appear maintained. No cervical spine fracture is seen. The cervical alignment appears normal. Mild degenerative change and mild bilateral neuroforaminal narrowing most notable at C3-C7. The paraspinal soft tissues appear within normal limits. The partially imaged lung apices appear clear. CT/CT cervical spine wo IV con IMPRESSION: CT head: No acute intracranial finding. CT cervical spine: No cervical spine fracture or traumatic malalignment identified. Electronically signed by: Ed Javier MD 08/16/2024 04:55 PM [facility]
[2024-08-16 11:53] VITALS: BP 158/84; PULSE 89; RESP 16; TEMP 37.1; O2SAT 97; BMI 20.3
--- NOTE | 2024-08-16 11:59 | ED_ITS ---
HPI - General Adult General Chief complaint: Extremity Injury, Upper Stated complaint: fall Time Seen by Provider: 08/16/24 15:20 Source: patient Mode of arrival: ambulatory Limitations: no limitations History of Present Illness ED Provider: Megha Jones PA-C HPI narrative: Patient is a 78 year old assigned male at with a history of COPD, GERD, HTN, and anxiety presenting to the emergency department today with left elbow pain, left hand pain, and right knee pain after a trip and fall. Patient states that he went running after his dog that was chasing after a stray cat into the street when he tripped and fell, landing on his hands. Patient denies any head strike, loss of consciousness, dizziness, lightheadedness, abdominal pain, nausea, vomiting, fever, chills, blurry vision, double vision, loss of vision, chest pain, difficulty breathing, shortness of breath, back pain, night sweats, pain with urination, increased urinary frequency, increased urinary urgency, blood in his urine or stool, syncope or a near syncopal episode, bowel incontinence, bladder incontinence, or any other complaints at this time. Relieving factors: none Exacerbating factors: none Associated symptoms: denies other symptoms Treatments prior to arrival: none Related Data Home Medications ?Medication ?Instructions ?Recorded ?Confirmed loratadine 10 mg tablet 10 mg PO DAILY 09/27/20 11/24/23 omeprazole 20 mg capsule,delayed 20 mg PO DAILY PRN Acid Reflux 09/27/20 11/24/23 release Previous Rx's ?Medication ?Instructions ?Recorded ipratropium 20 mcg-albuterol 100 1 puff inhalation Q6H PRN 09/27/20 mcg/actuation mist for inhalation shortness of breath 30 days #4 (Combivent Respimat) grams lisinopril 10 mg tablet 10 mg PO DAILY #90 tabs 07/10/21 nortriptyline 10 mg capsule 10 mg PO BEDTIME #90 caps 12/10/21 apixaban 5 mg (74 tabs) tablets in 5 mg PO BID #74 ea 08/14/23 a dose pack (Eliquis DVT-PE Treat 30D Start) apixaban 5 mg tablet (Eliquis) 5 mg PO BID #60 tabs 09/12/23 naproxen 500 mg tablet 500 mg PO BID 7 days #14 tabs 08/16/24 Allergies Allergy/AdvReac Type Severity Reaction Status Date / Time aspirin [ASA] Allergy Unknown Rash Verified 08/16/24 11:55 Review of Systems Constitutional: Constitutional: Reports no additional constitutional complaints, Denies chills, Denies fever(s) and Denies night sweats Eyes: Eyes: Reports no additional eye complaints, Denies blurry vision, Denies change in vision, Denies diplopia, Denies eye discharge, Denies loss of vision and Denies eye pain ENT: Denies dizziness Cardiovascular: Cardiovascular: Reports no additional cardiovascular complaints, Denies chest pain, Denies lightheadedness, Denies Loss of Consciousness and Denies dyspnea Respiratory: Respiratory: Reports no additional respiratory complaints and Denies dyspnea Gastrointestinal: Gastrointestinal: Reports no additional gastrointestinal complaints, Denies abdominal pain, Denies melena, Denies hematochezia, Denies change in bowel habits and Denies change in stool character Genitourinary: Genitourinary: Reports no additional male genitourinary complaints, Denies hematuria, Denies oliguria, Denies difficulty urinating, Denies dysuria, Denies urinary frequency, Denies urinary hesitancy, Denies urinary incontinence and Denies urinary urgency Musculoskeletal: Musculoskeletal: Reports no additional musculoskeletal complaints, Denies numbness and Denies tingling Comments: pain to the left elbow, pain to the left hand, pain to the left shoulder, and pain to the right knee Neurologic: Denies dizziness, Denies loss of vision, Denies numbness and Denies tingling Psychiatric: Psychiatric: Reports no additional psychiatric complaints Endocrine: Endocrine: Reports no additional endocrine complaints Hematologic/Lymphatic: Hematologic/Lymphatic: Reports no additional hematologic/lymphatic complaints Allergic/Immunologic: Allergic/Immunologic: Reports no additional allergic/immunologic complaints [facility] Past Medical History Attestation statement: The following information was validated with the patient. Source: old records reviewed and nursing notes reviewed Medical History Anxiety Insomnia Overweight (BMI 25.0-29.9) Benign prostatic hyperplasia GERD without esophagitis COPD (chronic obstructive pulmonary disease) Benign essential hypertension Bronchitis Surgical History History of inguinal hernia repair History of prostatectomy History of appendectomy Family History Family History Father Prostate cancer Brother Throat cancer Unknown No problems noted. Family/Other Breast CA Other Family history non-contributory Social History Social History Household Members: None Alcohol intake: never Patient Tobacco Use Status: Never used Tobacco Advance Directives: No Advance Directives Information Provided: Yes Do you have a plan to hurt others: No Plan service: No Current occupational status: retired Physical Exam ED Vital Signs: Vital Signs - 24 hr 08/16/24 11:53 08/16/24 17:17 08/16/24 17:27 Temperature 98.8 F 98.3 F 98.3 F Pulse Rate 89 82 82 Respiratory Rate 16 20 20 Blood Pressure 158/84 H 146/78 H 146/78 H Pulse Oximetry 97 98 98 Oxygen Delivery Method Room Air Room Air Room Air BMI result Body Mass Index 20.3 Const General: cooperative, no acute distress, alert and awake Nutritional Appearance: well nourished Orientation/consciousness: patient oriented x3 Limitations: no limitations HENMT Head: Yes normal to inspection and Yes atraumatic Ears: hearing grossly normal bilaterally and external ears normal General nose exam: Normal external nose present, no nasal discharge noted and no epistaxis Face and sinus: Yes normal facial exam, No abrasion and No laceration Mouth: Normal oral and palatal mucosa present, no drooling and no muffled voice Eyes General: appearance normal, both eyes and all related structures Periorbital: periorbital findings normal Eyelids: Yes eyelids normal Conjunctivae: conjunctivae normal Pupils: Equal, round and reactive pupils present EOM: EOMs intact bilaterally Neck Neck: Yes normal visual inspection, Yes full ROM and Yes no lymphadenopathy Chest Chest palpation & inspection: normal inspection of the chest Resp Effort & Inspection: normal respiratory effort and able to speak in complete sentences GI Inspection: Yes normal to inspection Neuro General: patient oriented x3 and moves all extremities Cranial nerves: Yes Equal, round and reactive pupils present Cognition (Neuro): normal cognition Extrem Other: pain with left elbow ROM pain with palpation to the left medial elbow and radial forearm small abrasion to the right palm - no active bleeding or open areas General: Yes capillary refill normal Psych Appearance: grossly normal Mental Status: mental status grossly normal Affect: normal affect Attitude: cooperative Thought process: Normal thought process present Thought content: Normal thought content present Insight: Good insight present (Psych) Course Course Course Narrative: RME: 78-year-old male presents to ED for left upper extremity pain. Patient states he was running after his dog was chasing a cat and fell onto his left upper extremity and right knee. Patient denies hitting head or loss of consciousness. Patient denies any dizziness nausea vomiting or neck pain since incident. Patient able to move left upper extremity but has tenderness on left hand, and left shoulder tenderness. Positive for right knee tenderness. Medications Administered Discontinued Medications Generic Name Dose Route Start Last Admin Trade Name Freq PRN Reason Stop Dose Admin Oxycodone HCl 10 mg 08/16/24 15:25 08/16/24 16:56 Oxycodone Hcl Immed Release 5 Mg Tablet PO 08/16/24 15:26 10 mg ONCE ONE Administration Procedures Orthopedic Splinting/Casting Injury #1: Side: left Upper Extremity Injury Location: elbow and forearm Upper Extremity Immobilizer: sling/shoulder immobilizer and posterior sp lint Medical Decision Making Medical Decision Making MDM Narrative: Patient is a 78 year old assigned male at with a history of COPD, GERD, HTN, and anxiety presenting to the emergency department today with left elbow pain, left hand pain, and right knee pain after a trip and fall. Patient's physical exam was as noted in the physical exam portion of this note. Patient's right knee, left wrist, and left shoulder x-rays showed no acute process. Patient's CT of the head and c-spine showed no acute process. Patient's left elbow x-ray showed an avulsion fracture of the medial AP condyle as well as a nondisplaced radial head fracture. I explained my physical exam findings as well as all test results to the patient. I answered all questions asked by the patient. Patient's left elbow was placed in a posterior long splint, without incident. Patient's PMS of the fingers and shoulder were intact prior to and after splint and subsequent sling placement. I stressed the importance of the patient taking his medication as directed (either prescribed or as the over the counter packaging recommends). I stressed the importance of the patient following up with his primary care provider and the orthopedic office. I stressed the importance of the patient returning to the emergency department immediately if his symptoms were to worsen or if he were to develop any dizziness, shortness of breath, difficulty breathing, chest pain, blurry vision, loss of vision, nausea, vomiting, abdominal pain, fever, chills, back pain, or any other complaints. Patient verbalized agreement and understanding with this treatment plan and discharge. Differential Diagnosis Differential Diagnoses: The differential diagnosis associated with the presentation includes Left radial head fx Left medial ap condyle fracture Fall Admission/Observation Consideration of admission/observation: Escalation of care including admission/observation considered Patient would have been admitted to the hospital had his work up had any findings where hospital admission was appropriate and his clinical presentation warranted hospital admission. Independent Interpretation I performed an independent interpretation of an: Plain X-Ray and CT Scan Interpretation: My interpretation is in agreement with the radiologist's impression of these imaging studies. EXAMINATION: XR ELBOW, LEFT CLINICAL INFORMATION: fall COMPARISON: None available. TECHNIQUE: AP, lateral, and oblique views of the left elbow. FINDINGS: Cortical irregularity/step off in the anterior margin of the radial head/neck junction of the radius variously in the lateral projection. No malalignment. There is a well-corticated ossific flake adjacent to the medial epicondyle. No lytic or blastic lesions. XR/XR elbow LT 2V IMPRESSION: Questionable subtle nondisplaced radial head fracture. Recommend dedicated radial head views. Probable avulsion fracture medial AP condyle, left humerus. Electronically signed by: Lazaro Luu MD 08/16/2024 02:[address] [facility] Dictated By: Lazaro Grewal MD Signed By: Electronically signed by Lazaro Hopkins MD 08/16/24 1423 EXAMINATION: XR HAND/WRIST, LEFT CLINICAL INFORMATION: fall COMPARISON: None available. TECHNIQUE: PA, lateral, and oblique views of the left hand and wrist. FINDINGS: No acute cortical disruption or malalignment. No lytic or blastic lesions. No subcutaneous emphysema. No metallic or radiopaque foreign body. XR/XR hand wrist LT IMPRESSION: No acute fracture or dislocation. Negative. Electronically signed by: Lazaro Luu MD 08/16/2024 02:19 PM EST RP Dictated By: Lazaro Grewal MD Signed By: Electronically signed by Lazaro Hopkins MD 08/16/24 1419 EXAMINATION: LEFT SHOULDER, RIGHT KNEE CLINICAL INFORMATION: Pain COMPARISON: None available. TECHNIQUE: 3 views left shoulder, 4 views right knee FINDINGS: Left shoulder: Some minimal degenerative changes are present at the glenohumeral joint and AC joint. No fractures or dislocations. No calcifications seen in the rotator cuff. Right knee: There is some minimal narrowing of the medial compartment. Trace knee joint effusion is present. There is no chondrocalcinosis, fractures or dislocations XR/XR knee RT 4V IMPRESSION: Minimal degenerative changes in the left shoulder and right knee. Electronically signed by: Gómez Crowell MD 08/16/2024 02:43 PM EST RP Dictated By: Gómez Crowell MD Signed By: Electronically signed by Gómez Crowell MD 08/16/24 1443 EXAMINATION: CT HEAD WITHOUT CONTRAST CT CERVICAL SPINE WITHOUT CONTRAST CLINICAL INFORMATION: Fall. Injury. COMPARISON: Head CT dated October 12, 2016. No prior CT scan of the cervical spine. TECHNIQUE: CT of the head and cervical spine were performed without intravenous contrast. Multiplanar reformats were rendered and reviewed. This CT examination was performed using dose optimization techniques as appropriate, variously including the following: *Automated exposure control *Adjustment of mA and/or kV according to patient size (this includes techniques or standardized protocols for targeted exams where dose is matched to indication/reason for exam; i.e. extremities or head) *Use of iterative reconstruction technique DLP: 1064 mGy-cm. FINDINGS: CT head: No intracranial hemorrhage, large infarction, or mass lesion is seen. Age-appropriate cortical atrophy and mild bilateral chronic periventricular white matter ischemic change. No extra-axial collection is appreciated. The ventricles are normal in size and configuration without evidence of hydrocephalus. The visualized paranasal sinuses and mastoid air cells are clear. Nasal septal spur protruding toward the left. CT cervical spine: The vertebral body heights appear maintained. No cervical spine fracture is seen. The cervical alignment appears normal. Mild degenerative change and mild bilateral neuroforaminal narrowing most notable at C3-C7. The paraspinal soft tissues appear within normal limits. The partially imaged lung apices appear clear. CT/CT cervical spine wo IV con IMPRESSION: CT head: No acute intracranial finding. CT cervical spine: No cervical spine fracture or traumatic malalignment identified. Electronically signed by: Ed Javier MD 08/16/2024 04:[address] [facility] Dictated By: Ed Javier Signed By: Electronically signed by Ed Javier 08/16/24 [id number] Radiology Impression Discussion of test interpretation with radiology: I have reviewed the radiologist's reading. Prescription Management I considered prescription management with: Pain Medication (patient prescribed pain medication) Chronic Conditions Patient?s care impacted by: Hypertension Discharge Plan Discharge Clinical Impression: Closed fracture of radial head, Fracture of medial condyle of elbow Patient Disposition: Home, Self-Care Instructions: Elbow Fracture (ED), How to Use a Sling (ED) Additional Instructions: Do NOT remove the splint. Do NOT get the splint wet. For approximately 10 minutes every 1 hour when awake, move your left SHOULDER ONLY to avoid frozen shoulder. You only need to use the sling when ambulating. Follow up with your primary care provider and an orthopedic provider. Return to the emergency department immediately if your symptoms worsen or if you develop any dizziness, shortness of breath, difficulty breathing, chest pain, blurry vision, loss of vision, nausea, vomiting, abdominal pain, fever, chills, back pain, or any other complaints. NO retire la f?abby. NO moje la f?abby. Flo aproximadamente 10 minutos cada 1 hora cuando est? despierto, mueva SOLO el HOMBRO jesu para evitar el hombro congelado. S?lo debe utilizar el cabestrillo cuando deambule. Gisselle un seguimiento con hunter m?dico de cabecera y un traumat?logo. Acuda inmediatamente al servicio de urgencias si vita s?ntomas empeoran o si presenta mareos, falta de aliento, dificultad para respirar, dolor tor?cico, visi?n borrosa, p?rdida de visi?n, n?useas, v?mitos, dolor abdominal, fiebre, escalofr?os, dolor de espalda o cualquier otra molestia. Prescriptions: New naproxen 500 mg tablet 500 mg PO BID 7 Days Qty: 14 0RF No Action lisinopril 10 mg tablet 10 mg PO DAILY Qty: 90 0RF nortriptyline 10 mg capsule 10 mg PO BEDTIME Qty: 90 0RF Eliquis DVT-PE Treat 30D Start 5 mg (74 tabs) tablets,dose pack 5 mg PO BID Qty: 74 0RF Eliquis 5 mg Tablet 5 mg PO BID Qty: 60 3RF omeprazole 20 mg capsule,delayed release(DR/EC) 20 mg PO DAILY PRN (Reason: Acid Reflux) loratadine 10 mg tablet 10 mg PO DAILY Combivent Respimat 20-100 mcg/actuation mist 1 puff inhalation Q6H PRN (Reason: shortness of breath) 30 Days Qty: 4 12RF Referrals: [facility] [place] [facility] [Provider Group] (Call to establish and follow up with an orthopedic provider. ) Jorden Arteaga III, MD [Primary Care Provider] - Interventions: ED Discharge Assessment Last Done: 08/16/24 17:27 Discharge Date/Time: 08/16/24 17:27 Print Language: Swedish
[2024-08-16] MEDS: oxyCODONE HCl Immed Release 5 MG TABLET 10 MG PO (16:56)
[2024-08-16 17:17] VITALS: BP 146/78; PULSE 82; RESP 20; TEMP 36.8; O2SAT 98
[2024-08-16 17:27] VITALS: BP 146/78; PULSE 82; RESP 20; TEMP 36.8; O2SAT 98
== END 2024-08-16 17:27 | disposition home or self-care (01) ==
PROVIDERS: Emergency Provider Emergency Medicine Emergency Medical Services; PCP Internal Medicine
DX: S52.125A Nondisplaced fracture of head of left radius, initial encounter for closed fracture (principal); S42.402A Unspecified fracture of lower end of left humerus, initial encounter for closed fracture; W01.0XXA Fall on same level from slipping, tripping and stumbling without subsequent striking against object, initial encounter; M25.561 Pain in right knee; M79.642 Pain in left hand; M25.512 Pain in left shoulder; Y93.02 Activity, running; Y92.9 Unspecified place or not applicable; Y99.9 Unspecified external cause status
CPT/HCPCS: 70450; 72125; 73030; 73070; 73110; 73130; 73564; 99283; 99284

== ENCOUNTER → 2024-08-16 11:57 | Outpatient (BNV) | payer OTHER, SELFPAY | PROVIDERS: PCP Internal Medicine; Visit Provider Radiology Diagnostic Radiology | DX: S52.124A Nondisplaced fracture of head of right radius, initial encounter for closed fracture (principal) | CPT/HCPCS: 73070 ==

== ENCOUNTER 2024-09-01 13:55 | Outpatient (REF) | payer OTHER, SELFPAY | END 2024-09-01 13:56 | disposition home or self-care (01) | LOC: HO.HOSX 13:55 | PROVIDERS: PCP Internal Medicine | DX: M25.522 Pain in left elbow (principal); S42.46 Fracture of medial condyle of humerus; S52.122A Displaced fracture of head of left radius, initial encounter for closed fracture | CPT/HCPCS: 73080; 99202 ==

== ENCOUNTER 2024-09-01 13:55 | Outpatient (AMB) | payer OTHER, SELFPAY ==
--- NOTE | 2024-09-01 14:06 | MHC.OFFVIS ---
Intake Visit Reasons: FC: left radial head fx Intake Note: Topher is a 78 year old right hand dominant male who presents today as a new patient for a fracture care visit for his left radial head fracture s/p trip and fall DOI: 08/16/2024. Pt states he was running after his dog and he tripped and fell. Pt states he is having pain everyday since his naproxen ran out. Pt denies any previous surgeries or injuries to his left arm. Allergies aspirin [ASA] Allergy (Unknown, Verified 09/01/24 14:07) Rash HPI HPI FC: left radial head fx: Details: Patient is a 78-year-old male who presents for evaluation of left radial head fracture and avulsion fracture of the left medial epicondyle after a fall, date of injury 08/16/2024. On that date, the patient states that he was chasing after his dog, and he fell and landed onto his left arm. The patient states he began to then experience significant discomfort in the left wrist and elbow. Patient was evaluated in the emergency department at that time, where x-rays revealed a nondisplaced fracture of the left radial head, as well as a minimally displaced avulsion fracture of the medial epicondyle of the left elbow. No fracture or acute bony abnormality of the left wrist noted Today, the patient reports that he is still experiencing significant pain in the elbow and forearm, particularly with pronation and supination. Patient denies any numbness or tingling in the left hand. No other acute complaints or concerns at this time. [facility] Medical History Anxiety Insomnia Overweight (BMI 25.0-29.9) Benign prostatic hyperplasia GERD without esophagitis COPD (chronic obstructive pulmonary disease) Benign essential hypertension Bronchitis Surgical History History of inguinal hernia repair History of prostatectomy History of appendectomy Family History Father Prostate cancer Brother Throat cancer Unknown No problems noted. Family/Other Breast CA Other Family history non-contributory Social History Household Members: None Alcohol intake: never Patient Tobacco Use Status: Never used Tobacco service: No Current occupational status: retired Review of Systems Const All systems reviewed & are unremarkable except as noted in HPI and below Physical Exam Extrem Other: On inspection, there is no visible deformity of the patient's left wrist or elbow No erythema, edema, ecchymosis noted No lacerations, abrasions, open areas No evidence of infection Patient does report significant tenderness to palpation over the medial epicondyle and radial head of the left elbow No tenderness to palpation of the lateral epicondyle or olecranon process of left elbow Patient is able to extend the left elbow to approximately 10-15 degrees and flex to approximately 120 degrees without difficulty at this time Patient was able to partially actively pronate and supinate the left forearm, but does report significant discomfort when doing so Good endpoints and no ligamentous laxity with varus and valgus testing of the left elbow Distal sensation intact Capillary refill brisk Office Procedures AMB Fracture Care Details: Left radial head fracture and medial epicondyle avulsion fracture Fracture Billing Code: Fracture Billing Code Results Reviewed Results Reviewed: X-rays obtained in the office today and independently reviewed by me, Russell Cintron PA-C, demonstrate minimally displaced avulsion fracture of the medial epicondyle, as well as nondisplaced fracture of the left radial head. Assessment & Plan Assessment & Plan (1) Fracture of medial condyle of elbow: Code(s): S42.463A - Displaced fracture of medial condyle of unspecified humerus, initial encounter for closed fracture Category: Medical (2) Left radial head fracture: Code(s): S52.122A - Displaced fracture of head of left radius, initial encounter for closed fracture Category: Medical Plan 1. Nondisplaced radial head fracture of the left elbow 2. Minimally displaced medial epicondyle fracture of left elbow no ligamentous laxity Patient is educated about these injuries of the typical recovery course At this time, patient was advised that he can wear a sling for comfort if needed in crowded situations, but otherwise should not be wearing a sling Patient was advised that he should work on gentle range of motion with flexion and extension of the elbow, but should avoid any forceful pronation or supination, particularly against resistance or if it causes pain Patient was advised to perform activities such as opening jars and doors with the other hand Patient was also advised that he should avoid any heavy lifting in the left upper extremity, with a 5 lb weight limit Patient expresses understanding this and is amenable to this plan Patient is also offered referral to occupational therapy for gentle range of motion of the left elbow, but states he would like to work on range of motion himself 1st and potentially go to OT at next visit Patient will follow-up in 4 weeks with repeat x-rays, sooner with any acute concerns Orders: Orders XR elbow LT min 3V 09/01/24 M25.522 - Pain in left elbow Medications: New ibuprofen 400 mg PO Q8H PRN 21 tabs 0RF pain Coding Level of Care Code New Pt Level 3 (38506) Diagnoses Fracture of medial condyle of elbow S42.463A Left radial head fracture S52.122A CPT Codes Fracture Care - Fracture Billing Code: Fracture Billing Code ([id number])
== END 2024-09-01 14:26 | disposition home or self-care (01) ==
PROVIDERS: PCP Internal Medicine
DX: S42.462A Displaced fracture of medial condyle of left humerus, initial encounter for closed fracture (principal); S52.125A Nondisplaced fracture of head of left radius, initial encounter for closed fracture
CPT/HCPCS: 99203

== ENCOUNTER 2024-10-04 08:14 | Outpatient (REF) | payer OTHER, SELFPAY ==
--- NOTE | ~2024-10-04 | XR_ITS ---
EXAMINATION: XR ELBOW 3 VIEWS LEFT HISTORY: M25.522 - Pain in left elbow COMPARISON: Comparison is made with the prior examination dated 09/01/2024. FINDINGS: Three views of the left elbow are submitted. Osseous mineralization is normal. Again seen is a transverse fracture of the radial neck. There is blurring of the fracture margins with associated osteopenia, consistent with healing. The joint spaces are preserved. There is a persistent joint effusion. XR/XR elbow LT min 3V IMPRESSION: Healing fracture of the radial neck. Electronically signed by: Freddie Rock MD 10/07/2024 09:22 AM KEVAN
== END 2024-10-04 08:15 | disposition home or self-care (01) ==
LOC: HO.HOSX 08:14
DX: M25.522 Pain in left elbow (principal); S52.122A Displaced fracture of head of left radius, initial encounter for closed fracture; S42.462A Displaced fracture of medial condyle of left humerus, initial encounter for closed fracture
CPT/HCPCS: 73080; 99212

== ENCOUNTER 2024-10-04 12:46 | Outpatient (AMB) | payer OTHER, SELFPAY ==
--- NOTE | 2024-10-04 13:02 | MHC.OFFVIS ---
Vital Signs 10/04/24 13:06 Height 5 ft 7 in Weight 129 lb BMI 20.2 Handedness Right Intake Visit Reasons: OV- left radial head fx DOI: 08/16/2024 Intake Note: Topher is a 78 year old right hand dominant male who presents today for a follow up visit for his fracture of medial condyle of elbow & left radial head fracture s/p fall DOI: 08/16/2024. Patient reports he is still having a lot of pain. He mentions that his PCP prescribed naproxen which is giving him relief. Allergies aspirin [ASA] Allergy (Unknown, Verified 10/04/24 13:05) Rash HPI HPI OV- left radial head fx DOI: 08/16/2024: Details: Patient is a 78-year-old presents for follow-up evaluation of the left radial head fracture, date of injury 08/16/2024. Today, the patient reports that he is still experiencing pain in his left elbow, but it has improved significantly. Patient states that his primary care doctor did provide him with a prescription for Naprosyn for pain relief, which she does feel is helping. Patient is continuing to work on range of motion of the left elbow. No other acute complaints or concerns at this time. [facility] Medical History Anxiety Insomnia Overweight (BMI 25.0-29.9) Benign prostatic hyperplasia GERD without esophagitis COPD (chronic obstructive pulmonary disease) Benign essential hypertension Bronchitis Surgical History History of inguinal hernia repair History of prostatectomy History of appendectomy Family History Father Prostate cancer Brother Throat cancer Unknown No problems noted. Family/Other Breast CA Other Family history non-contributory Social History Household Members: None Alcohol intake: never Patient Tobacco Use Status: Never used Tobacco service: No Current occupational status: retired Physical Exam Vital Signs: BMI result Body Mass Index 20.2 Extrem Other: On inspection, there is no visible deformity of the patient's left wrist or elbow No erythema, edema, ecchymosis noted No lacerations, abrasions, open areas No evidence of infection Patient does report mild tenderness to palpation over the medial epicondyle and radial head of the left elbow No tenderness to palpation of the lateral epicondyle or olecranon process of left elbow Patient is able to extend the left elbow to approximately 10 degrees and flex to approximately 120 degrees without difficulty at this time Patient was able to actively pronate and supinate the left forearm, but does report discomfort when doing so Good endpoints and no ligamentous laxity with varus and valgus testing of the left elbow Distal sensation intact Capillary refill brisk Results Reviewed Results Reviewed: X-rays obtained in the office today and independently reviewed by me, Russell Cintron PA-C, demonstrate minimally displaced avulsion fracture of the medial epicondyle, as well as nondisplaced fracture of the left radial head with evidence of interval bone healing. Assessment & Plan Assessment & Plan (1) Fracture of medial condyle of elbow: Code(s): S42.463A - Displaced fracture of medial condyle of unspecified humerus, initial encounter for closed fracture Category: Medical (2) Left radial head fracture: Code(s): S52.122A - Displaced fracture of head of left radius, initial encounter for closed fracture Category: Medical Plan 1. Nondisplaced radial head fracture of the left elbow 2. Minimally displaced medial epicondyle fracture of left elbow no ligamentous laxity Patient is educated about these injuries of the typical recovery course Patient was advised that he should completely discontinue wearing the sling Patient was advised that he can begin active pronation and supination at this time, but it should not be against resistance Patient was also advised that he should avoid any heavy lifting in the left upper extremity, with a 5 lb weight limit Patient expresses understanding this and is amenable to this plan Patient will follow-up in 4 weeks with repeat x-rays, sooner with any acute concerns Orders: Orders XR elbow LT min 3V 10/04/24 M25.522 - Pain in left elbow Coding Level of Care Code Global (95542) Diagnoses Fracture of medial condyle of elbow S42.463A Left radial head fracture S52.122A
[2024-10-04 13:06] VITALS: BMI 20.2
== END 2024-10-04 13:15 | disposition home or self-care (01) ==
PROVIDERS: PCP Internal Medicine
DX: S42.462A Displaced fracture of medial condyle of left humerus, initial encounter for closed fracture (principal); S52.122A Displaced fracture of head of left radius, initial encounter for closed fracture
CPT/HCPCS: 99213

== ENCOUNTER → 2024-10-04 12:49 | Outpatient (BNV) | payer OTHER, SELFPAY | PROVIDERS: Visit Provider Radiology Diagnostic Radiology | DX: M25.522 Pain in left elbow (principal) | CPT/HCPCS: 73080 ==

== ENCOUNTER 2024-11-10 08:12 | Outpatient (REF) | payer OTHER, SELFPAY ==
--- NOTE | ~2024-11-10 | XR_ITS ---
EXAMINATION: XR ELBOW, LEFT CLINICAL INFORMATION: M25.522 - Pain in left elbow COMPARISON: Radial head fracture. Follow-up. TECHNIQUE: AP, lateral, and oblique views of the left elbow. FINDINGS: Redemonstration of a transverse fracture of the radial neck, remaining in anatomic alignment. There is blunting and sclerosis of the fracture margins with subtle new bone formation within the fracture gap. Findings indicate healing. No additional fractures or suspicious bone lesions. Minimal spurring of the medial epicondyle as well as the coronoid process and olecranon. There is a persistent small joint effusion. Soft tissues otherwise normal. XR/XR elbow LT min 3V IMPRESSION: Healing radial neck fracture without change in alignment. Electronically signed by: Jey Ryder MD 11/10/2024 01:13 PM KEVAN SOLANO
--- OUTSIDE RECORDS SUMMARY | 2024-11-10 08:26 | XMS_ITS | Encounter Summary ---
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 Report Medical Records [address] [place] [address] Maira Castro NP Social History Tobacco Use Types Packs/Day Years Used Date Smoking Tobacco: Former Cigarettes 0.5 15 0 1976 - 09/29/2009 Smokeless Tobacco: Never Comments:stopped for 5 yrs t hen restarted quit 09/2009 smokes on Sat when has a drink Alcohol Use Standard Drinks/Week Comments Yes 0 (1 standard drink = 0.6 oz pur e alcohol) 1-2 beer on major holidays Sex Assigned at Date Recorded Not on file Job Start Date Occupation Industry Not on file Not on file Not on file documented as of this encounter Plan of Treatment Not on file documented as of this encounter Visit Diagnoses Not on filedocumented in this encounter Care Teams Wrapping Clerk Relationship Specialty Start Date End Date Jorden Arteaga MD [address] [place] [id number] PCP - General Internal Medicine 07/01/16 documented as of this encounter
--- OUTSIDE RECORDS SUMMARY | 2024-11-10 08:26 | XMS_ITS | Clinical Summary ---
Author Organization [facility] [address] [place] [address] [place] [phone] Phone Care Team Providers Care Underbaster Name Role Phone Jorden Arteaga MD Primary Care Provider [phone] Allergies Active Allergy Reactions Criticality Noted Date Comments Alfuzosin Hcl Rash 07/01/2016 Pruiritic Rash Aspirin Rash 07/14/2013 Levofloxacin Other 10/16/2012 Abd pain Lisinopril 10/19/2020 Cough Medications melatonin 5 mg capsule TAKE 1 TABLET BY MOUTH ONCE EVERY EVENING 90 each 09/06/20 24 Active ciclopirox (LOPROX) 0.77 % gel APPLY 1 APPLICATION TOPICALLY TO AFFECTED AREA TWICE DAILY Active cyclobenzapri ne (FLEXERIL) 5 mg tablet Take 1 tablet (5 mg total) by mouth. 01/27/20 24 Active fluticasone propionate (FLONASE) 50 mcg/actuation nasal spray See Instructions, 2 sprays R nostril twice daily x 1 week, then once daily for 1 month, # 16 Gm, 0 Refills, Maintenance, 03/12/22 10:20:00 EDT, Desi, [id number], Partial fill upon patient request if the prescription is for a schedule... 03/12/20 22 Active ibuprofen (ADVIL,MOTRIN ) 800 mg tablet Take 1 tablet (800 mg total) by mouth every 8 (eight) hours if needed. 03/05/20 24 Active Combivent Respimat 20-100 mcg/actuation inhaler INHALE 1 PUFF BY MOUTH INTO THE LUNGS EVERY 6 HOURS NEEDED FOR WHEEZING/DIFFIC ULTLY BREATHING FOR UP TO 30 DAYS. THIS IS A RESCUE MEDICATION. NOT TO EXCEED MORE THAN 6 PUFFS DAILY Active lidocaine (XYLOCAINE) 2 % solution SWISH AND SPIT 15 ML BY MOUTH EVERY 3 HOURS NEEDED FOR SORE THROAT. DO NOT EXCEED 8 DOSES PER 24 HOUR PERIOD Active losartan (COZAAR) 25 mg tablet Take 1 tablet (25 mg total) by mouth 1 (one) time each day. 90 tablet 1 09/13/20 24 Active cetirizine (ZyrTEC) 10 mg tablet Take 1 tablet (10 mg total) by mouth 1 (one) time each day. 90 each 1 11/03/19 25 Active cholecalcifer ol (VITAMIN D-3) 50 mcg (2,000 unit) tablet Take 1 tablet (2,000 Units total) by mouth 1 (one) time each day. 90 each 1 11/03/19 25 Active omeprazole (PriLOSEC) [address] capsule Take 1 capsule (20 mg total) by mouth 1 (one) time each day. 90 each 1 11/03/19 25 Active naproxen (NAPROSYN) 500 mg tablet Take 1 tablet by mouth twice daily 60 tablet 11/05/19 25 Active cetirizine (ZyrTEC) 10 mg tablet Take 1 tablet (10 mg total) by mouth 1 (one) time each day. 07/22/20 24 025 Discontinued(R eorder) cholecalcifer ol (VITAMIN D-3) 50 mcg (2,000 unit) tablet Take 1 tablet (2,000 Units total) by mouth 1 (one) time each day. 025 Discontinued(R eorder) omeprazole (PriLOSEC) [address] capsule Take 1 capsule (20 mg total) by mouth 1 (one) time each day. 07/22/20 24 025 Discontinued(R eorder) naproxen (NAPROSYN) 500 mg tablet Take 1 tablet (500 mg total) by mouth 2 (two) times a day. 60 tablet 1 09/08/20 24 025 Discontinued Active Problems Problem Noted Date Diagnosed Date Nasal polyp 04/17/2022 Renal lesion 04/17/2022 Overview (09/06/2024): Following with urology. 6 mth US. 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 PSA slightly up 5.2 Heartburn 06/24/2007 Lumbago 06/24/2007 Pain in joint, shoulder region 06/24/2007 Overview (09/06/2024): Bilateral shoulder pain Encounters Date Type Department Care Team Description 09/08/2024 1:00 PM EST Office Visit Adult Medicine [address] [phone] Luca Nuñez PA Essential hypertension (Primary Dx); Screening for lipid disorders; Closed nondisplaced fracture of head of left radius, initial encounter; Closed nondisplaced fracture of medial condyle of left humerus, initial encounter; Heartburn; Chronic obstructive pulmonary disease, unspecified COPD type ([facility]) 08/23/2024 Telephone Adult Medicine [address] [phone] Jorden Arteaga MD Er Follow-Up ([facility] on 08/16/24) from Last 3 Months Immunizations Name Administration Dates Next Due Influenza trivalent, 0.5mL ( Fluad) 65yo and older 07/27/2018,08/13/2017 Influenza trivalent, 0.5mL, preservative free (Fluarix; FluLaval; Fluzone) ages 6mo and older (Afluria) 3 years and older 07/21/2014,07/14/2013,09/06/2008,06/24 Pneumococcal conjugate 13 va lent (Prevnar 13, PCV13) 2mo and older 03/29/2015 Pneumococcal polysaccharide 23 valent (Pneumovax 23) 2yo and older 01/30/2018 Td Tetanus diptheria (Tdvax) 7yo and older 09/16/2013 Tdap Tetanus diptheria acell ular pertussis (Boostrix; Adacel) 7yo and older 09/11/2016 Surgical History Surgery Date Site/Laterality Comments HERNIA REPAIR PROCEDURE: HISTORICAL HERNIA REPAIR/ING APPENDECTOMY PROCEDURE: HISTORICAL APPENDECTOMY ESOPHAGOGASTRODUODENOSCOPY 2004 PROCEDURE: [place] ESOPHAGOGASTRODUODENOSCOPY TRANSORAL DIAGNOSTIC; COMMENT: Leonaogian; normal COLONOSCOPY 2004 PROCEDURE: HISTORICAL COLONOSCOPY; COMMENT: Leonaogian; normal COLONOSCOPY 07/02/20 12 PROCEDURE: HISTORICAL COLONOSCOPY; COMMENT: normal UPPER GASTROINTESTINAL ENDOSCOPY 01/02/20 17 PROCEDURE: [place] UPPER GI ENDOSCOPY PERFORMED; COMMENT: No ulcers; biopsies negative for H. pylori infection. COLONOSCOPY 02/21/20 22 PROCEDURE: HISTORICAL COLONOSCOPY; COMMENT: few diverticuli - cecum APPENDECTOMY PROCEDURE:APPENDECTOMY HERNIA REPAIR PROCEDURE:HERNIA REPAIR COLONOSCOPY PROCEDURE:COLONOSCOPY Medical History Medical History Date Comments Lumbago 06/24/2007 DX:Lumbago; COMM ENT: pain better since 2013 Pain in joint, shoulder region 06/24/2007 D X:Pain in joint, shoulder region; COMMENT: Bilateral shoulder pain on and off GERD (gastroesophageal reflu x disease) 06/24/2007 DX:GERD (gastroesophageal re flux disease) DVT (deep venous thrombosis) ([facility]) DX:DVT (deep venous thrombos is) ([facility]) Family History Medical History Relation Name Comments Throat cancer Brother 1 Throat cancer Brother 2 Prostate cancer Father Other: Healthy Mother alive 93 year s old Relation Name Status Comments Brother 1 Brother 2 Father Mother Social History Tobacco Use Types Packs/Day Years Used Date Smoking Tobacco: Former Cigarettes 0.5 32.9 0 1976 - 09/29/2009 Smokeless Tobacco: Never Tobacco Cessation:Counseling Given: Not Answered Alcohol Use Standard Drinks/Week Comments Not Currently 0 (1 standard drink = 0.6 oz pur e alcohol) Sex and Gender Information Value Date Recorded Sex Assigned at Not on file Legal Sex Male 4:29 AM EST Gender Identity Not on file Sexual Orientation Not on file Obstetrics History Last Filed Vital Signs Vital Sign Reading Time Taken Comments Blood Pressure 132/76 09/08/2024 1:36 PM EST Pulse 86 09/08/2024 1:00 PM EST Temperature 36.4 ??C (97.6 ??F) 09/08/2024 1:00 PM ES T Respiratory Rate - - Oxygen Saturation 97% 09/08/2024 1:00 PM EST Inhaled Oxygen Concentration - - Weight 78.1 kg (172 lb 1.6 oz) 09/08/2024 1:00 P M EST Height 170.2 cm (5' 7.01 ) 09/08/2024 1:00 PM ES T Body Mass Index 26.95 09/08/2024 1:00 PM EST Plan of Treatment Upcoming Encounters Date Type Department Care Team (Late st Contact Info) Description 12/07/2024 10:30 AM EDT Office Visit Pulmonolgy - [place] [address] [phone] Lalo Sarkar MD [address] [address] 03/15/2025 9:45 AM EDT Office Visit Adult Medicine [facility] [address] [place] [phone] Jorden Arteaga MD [address] [place] [address] Health Maintenance Due Date Last Done Comments Zoster Vaccines (1 of 2) 1996 RSV Immunization Patients 60+ Years Old (1 - 1-dose 75+ series) 2021 Depression Screening 09/07/2022 Falls Risk Assessment 09/07/2022 Hepatitis C Screening 09/07/2022 Medicare Annual Wellness Visit 09/07/2022 Social Influencers of Health Screening 09/07/2022 COVID-19 Vaccine ( season) 2024 Influenza Vaccine (#1) 2024 8, 08/13/2017, 07/21/2014, Additional history exists Hypertension/CHF/CAD Annual BMP Blood Test 09/09/2025 09/09/2024 DTaP,Tdap,and Td Vaccines (3 - Td or Tdap) 09/11/2026 09/11/2016, 09/16/2013 Cholesterol Screening (Lipid Panel) 09/09/2029 09/09/2024 Pneumococcal Vaccine: 50+ Years Completed 01/30/2018, 03/29/2015 HIB Vaccines Aged Out No longer eligi ble based on patient's age to complete this topic HPV Vaccines Aged Out No longer eligi ble based on patient's age to complete this topic Hepatitis A Vaccines Aged Out No long er eligible based on patient's age to complete this topic Hepatitis B Vaccines Aged Out No long er eligible based on patient's age to complete this topic IPV Vaccines Aged Out No longer eligi ble based on patient's age to complete this topic MMR Vaccines Aged Out No longer eligi ble based on patient's age to complete this topic Meningococcal ACWY Vaccine Aged Out N o longer eligible based on patient's age to complete this topic RSV Immunization Patients Under 20 months Aged Out No longer eligible based on patient's age to complete this topic Varicella Vaccines Aged Out No longer eligible based on patient's age to complete this topic Procedures Procedure Name Priority Date/Time Associated Diagnosis Comments BASIC METABOLIC PANEL Routine 09/09/2024 11:52 AM EST Essential hypertension Screening for lipid disorders LIPID PANEL WITH REFLEX TO DIRECT LDL Routine 09/09/2024 11:52 AM EST Essential hypertension Screening for lipid disorders EXTERNAL CT REPORT 08/16/2024 from Last 3 Months Results * (ABNORMAL) Lipid panel with reflex to direct LDL (09/09/2024 11:52 AM EST) Cholesterol 143 0 - 200 mg/dL LAB CHEMISTRY METHOD 09/09/2024 3:40 PM EST [facility] Triglycerides 229(H) 0 - 150 mg/dL LAB CHEMISTRY METHOD 09/09/2024 3:40 PM EST [facility] HDL 36(L) >=40 mg/dL LAB CHEMISTRY METHOD 09/09/2024 3:40 PM EST [facility] LDL Calculated 61 0 - 100 mg/dL LAB CHEMISTRY METHOD 09/09/2024 3:40 PM EST [facility] VLDL Cholesterol Gen 45.8 mg/dL LAB CHEMISTRY METHOD 09/09/2024 3:40 PM [facility] Non HDL Chol. (LDL+VLDL) 107 <145 mg/dL LAB CHEMISTRY METHOD 09/09/2024 3:40 PM [facility] Chol/HDL Ratio 4.0 0.0 - 4.4 LAB CHEMISTRY METHOD 09/09/2024 3:40 PM [facility] Blood Venous blood specimen / Unknown Venipuncture / Unknown 09/09/2024 11:52 AM EST 09/09/2024 11:52 AM EST Luca MALDONADO LAB BLOOD ORDERABLES Fi nal Result [facility] [address] [place] [address], * (ABNORMAL) Basic metabolic panel (09/09/2024 11:52 AM EST) Sodium 141 133 - 145 mmol/L LAB CHEMISTRY METHOD 09/09/2024 3:40 PM [facility] Potassium 4.3 3.5 - 5.5 mmol/L LAB CHEMISTRY METHOD 09/09/2024 3:40 PM [facility] Chloride 108 96 - 110 mmol/L LAB CHEMISTRY METHOD 09/09/2024 3:40 PM [facility] CO2 28 21 - 32 mmol/L LAB CHEMISTRY METHOD 09/09/2024 3:40 PM [facility] Anion Gap 5 3 - 11 LAB CHEMISTRY METHOD 09/09/2024 3:40 PM [facility] Glucose 104(H) 70 - 100 mg/dL LAB CHEMISTRY METHOD 09/09/2024 3:40 PM [facility] BUN 17 5 - 25 mg/dL LAB CHEMISTRY METHOD 09/09/2024 3:40 PM EST [facility] Creatinine 1.37(H) 0.70 - 1.30 mg/dL LAB CHEMISTRY METHOD 09/09/2024 3:40 PM [facility] eGFR 53(L) >=60 mL/min/1. 73m2 LAB CHEMISTRY METHOD 09/09/2024 3:40 PM EST [facility] Comment:Calculation based on the??Chronic Kidney Disease Epidemiology Collaboration (CKD-EPI) equation refit??without adjustment for race. BUN/Creatinine Ratio 12.4 LAB CHEMISTRY METHOD 09/09/2024 3:40 PM [facility] Calcium 9.1 8.5 - 10.5 mg/dL LAB CHEMISTRY METHOD 09/09/2024 3:40 PM [facility] Blood Venous blood specimen / Unknown Venipuncture / Unknown 09/09/2024 11:52 AM EST 09/09/2024 11:52 AM EST Luca MALDONADO LAB BLOOD ORDERABLES Fi nal Result [facility] [address] [place] [address], * External CT Report (08/16/2024) Anatomical Region Laterality Modality Computed Tomogra phy us Provider Onbase IMG CT PROCEDURES Final Resul t from Last 3 Months Insurance [employer] MEDICARE Care Teams Underbaster Relationship Specialty Start Date End Date Jorden Arteaga MD [address] [place] [phone] PCP - General Internal Medicine 09/06/15
--- OUTSIDE RECORDS SUMMARY | 2024-11-10 08:26 | XMS_ITS | Encounter Summary ---
Author Organization [facility] Address [address] [place] [address] Care Team Providers Care Inspector Optical Instrument Name Role Phone Jorden Arteaga MD Primary Care Provider [phone] Encounter Details Date Type Department Care Team Description 07/24/2022 Building Associate Report Medical Records [address] [place] [address] Jermaine Betancourt V., DPM Social History Tobacco Use Types Packs/Day Years [...] on filedocumented in this encounter Care Teams Inspector Optical Instrument Relationship Specialty Start Date End Date Jorden Arteaga MD [address] [place] [address] PCP - General Internal Medicine 07/01/16 documented as of this encounter
--- OUTSIDE RECORDS SUMMARY | 2024-11-10 08:26 | XMS_ITS | Encounter Summary ---
Author Organization [facility] Address [address] [place] [address] Care Team Providers Care Welding Specialist Name Role Phone Name, Rosas HOBSON Primary Care Provider Jorden Olivarez MD Primary Care Provider [phone] Name, Rosas HOBSON Primary Care Provider Jorden Olivarez MD Primary Care Provider [phone] Encounter Details Date Type Department Care Team Description 10/28/2014 Federal Law Clerk Report Medical Records [address] [place] [address] Kan Hernandez MD Social History Tobacco Use Types Packs/Day Years Used Date Smoking Tobacco: Former Cigarettes 0.5 15 Smokeless Tobacco: Never Comments:stopped for 5 yrs t hen restarted quit 09/2009 smokes on Sat when has a drink Alcohol Use Standard Drinks/Week Comments Yes 0 (1 standard drink = 0.6 oz pur e alcohol) 3 beers per mo Sex Assigned at Date Recorded Not on file Job Start Date Occupation Industry Not on file Not on file Not on file documented as of this encounter Plan of Treatment Not on file documented as of this encounter Visit Diagnoses Not on filedocumented in this encounter Care Teams Welding Specialist Relationship Specialty Start Date End Date Name, MD Rosas PCP - General 04/13/07 09/05/15 Jorden Arteaga MD [address] [place] [address] PCP - General Internal Medicine 09/06/15 06/03/16 Name, MD Rosas [address] [place] [address] PCP - General Internal Medicine 06/04/16 06/30/16 Joredn Arteaga MD [address] [place] [phone] PCP - General Internal Medicine 07/01/16 documented as of this encounter
--- OUTSIDE RECORDS SUMMARY | 2024-11-10 08:27 | XMS_ITS | Encounter Summary ---
Author Organization [facility] Address [address] [place] [address] Care Team Providers Care Manager Community Name Role Phone Jorden Arteaga MD Primary Care Provider [phone] Encounter Details Date Type Department Care Team Description 01/01/2022 Structural Steel Fitter Report Medical Records [address] [place] [phone] Baylee Smith PA-C Social History Tobacco Use Types Packs/Day Years [...] on filedocumented in this encounter Care Teams Manager Community Relationship Specialty Start Date End Date Jorden Arteaga MD [address] [place] [address] PCP - General Internal Medicine 07/01/16 documented as of this encounter
--- OUTSIDE RECORDS SUMMARY | 2024-11-10 08:27 | XMS_ITS | Encounter Summary ---
Author Organization [facility] Address [address] [place] [address] Care Team Providers Care Automatic Spinning Lathe Operator Name Role Phone Name, Rosas HOBSON Primary Care Provider Jorden Olivarez MD Primary Care Provider Name, Rosas HOBSON Primary Care Provider Jorden Olivarez MD Primary Care Provider [phone] Encounter Details Date Type Department Care Team Description 07/03/2015 Alternative Energy Engineer Report Medical Records [address] [place] [id number] Thom Robert MD Social History Tobacco Use Types Packs/Day [...] on filedocumented in this encounter Care Teams Automatic Spinning Lathe Operator Relationship Specialty Start Date End Date Name, MD Rosas PCP - General 04/13/07 09/05/15 Jorden Arteaga MD [address] [place] [address] PCP - General Internal Medicine 09/06/15 06/03/16 Name, MD Rosas [address] [place] [address] PCP - General Internal Medicine 06/04/16 06/30/16 Jorden Arteaga MD [address] [place], [place] [address] [address] PCP - General Internal Medicine 07/01/16 documented as of this encounter
--- OUTSIDE RECORDS SUMMARY | 2024-11-10 08:28 | XMS_ITS | Encounter Summary ---
Author Organization [facility] Address [address] [place] [address] Care Team Providers Care Axle Polisher Name Role Phone Name, Rosas HOBSON Primary Care Provider Jorden Olivarez MD Primary Care Provider [phone] Name, Rosas HOBSON Primary Care Provider Jorden Olivarez MD Primary Care Provider [phone] Encounter Details Date Type Department Care Team Description 03/28/2014 Blind Aide Report Medical Records [address] [place] [address] [address] Social History Tobacco Use Types Packs/Day Years [...] on filedocumented in this encounter Care Teams Axle Polisher Relationship Specialty Start Date End Date Rosas Baldwin MD PCP - General 04/13/07 09/05/15 Jorden Arteaga MD [address] [place], [place] [phone] PCP - General Internal Medicine 09/06/15 06/03/16 Rosas Baldwin MD [address] [place] [phone] PCP - General Internal Medicine 06/04/16 06/30/16 Jorden Arteaga MD [address] [place] [address] PCP - General Internal Medicine 07/01/16 documented as of this encounter
--- OUTSIDE RECORDS SUMMARY | 2024-11-10 08:28 | XMS_ITS | Encounter Summary ---
Author Organization [facility] Address [address] [place] [address] Care Team Providers Care Area Supervisor Name Role Phone Jorden Arteaga MD Primary Care Provider [phone] Encounter Details Date Type Department Care Team Description 06/10/2017 Faculty I On Call Medical Assistant Report Medical Records [address] [place] [address] Ed Roberts MD Social History Tobacco Use Types Packs/Day [...] on filedocumented in this encounter Care Teams Area Supervisor Relationship Specialty Start Date End Date Jorden Arteaga MD [address] [place] [address] PCP - General Internal Medicine 07/01/16 documented as of this encounter
--- OUTSIDE RECORDS SUMMARY | 2024-11-10 08:28 | XMS_ITS | Encounter Summary ---
Author Organization [facility] Address [address] [place] [address] Care Team Providers Care Relocation Services Specialist Name Role Phone Jorden Arteaga MD Primary Care Provider [phone] Encounter Details Date Type Department Care Team Description 12/17/2017 Primer Charging Tool Setter Report Medical Records [address] [place] [phone] Baylee Smith PA-C Social History Tobacco Use [...] on filedocumented in this encounter Care Teams Relocation Services Specialist Relationship Specialty Start Date End Date Jorden Arteaga MD [address] [place] [address] PCP - General Internal Medicine 07/01/16 documented as of this encounter
--- OUTSIDE RECORDS SUMMARY | 2024-11-10 08:29 | XMS_ITS | Encounter Summary ---
Author Organization [facility] Address [address] [place] [address] Care Team Providers Care Supervisor Show Operations Name Role Phone Name, Rosas HOBSON Primary Care Provider Jorden Olivarez MD Primary Care Provider [phone] Name, Rosas HOBSON Primary Care Provider Jorden Olivarez MD Primary Care Provider Encounter Details Date Type Department Care Team Description 04/30/2013 Senior Quality Assurance Specialist Report Medical Records [address] [place] [address] Mitchell Day, PALizzieC Social History Tobacco Use Types Packs/Day Years [...] on filedocumented in this encounter Care Teams Supervisor Show Operations Relationship Specialty Start Date End Date Name, MD Rosas PCP - General 04/13/07 09/05/15 Jorden Artegaa MD [address] [place] [address] PCP - General Internal Medicine 09/06/15 06/03/16 Name, MD Rosas [address] [place] [address] PCP - General Internal Medicine 06/04/16 06/30/16 Jorden Arteaga MD [address] [place] [address] PCP - General Internal Medicine 07/01/16 documented as of this encounter
--- OUTSIDE RECORDS SUMMARY | 2024-11-10 08:29 | XMS_ITS | Encounter Summary ---
Author Organization [facility] Address [address] [place] [address] Care Team Providers Care Railroad Car Repairman Name Role Phone Jorden Arteaga MD Primary Care Provider [phone] Name, Rosas HOBSON Primary Care Provider [facility] Jorden Arteaga MD Primary Care Provider [phone] Encounter Details Date Type Department Care Team Description 12/29/2015 Telephone Adult Medicine [address] [phone] Jorden Arteaga MD [address] [place] [phone] Social History Tobacco Use Types Packs/Day Years [...] on file documented as of this encounter Miscellaneous Notes * Telephone Encounter - Ed Roberts MD - 01/01/2016 8:57 AM EDT Thank you for making me aware. I will have my staff try to contact him and arrange for him to see me soon with a repeat psa prior. * Telephone Encounter - Jorden Arteaga MD - 12/29/2015 3:18 PM EDT Called pt he was to see urology for a turp in 10/2015 Pt last week reschedule the appointment i called to make sure that that his urologist is aware Pt states he has been checked and has had negative testing for cancer in the past Just want to make sure you were aware that that his psa was elevated at 5.2 documented in this encounter Plan of Treatment Not on file documented as of this encounter Visit Diagnoses Not on filedocumented in this encounter Care Teams Railroad Car Repairman Relationship Specialty Start Date End Date Jorden Arteaga MD [address] [place] [address] PCP - General Internal Medicine 09/06/15 06/03/16 Name, MD Rosas [address] [place] [address] PCP - General Internal Medicine 06/04/16 06/30/16 Jorden Arteaga MD [address] [place] [phone] PCP - General Internal Medicine 07/01/16 documented as of this encounter
--- OUTSIDE RECORDS SUMMARY | 2024-11-10 08:29 | XMS_ITS | Clinical Summary ---
Author Organization [facility] Address [address] [place] [address] Care Team Providers Care Personal Service Workers Name Role Phone Jorden Arteaga MD Primary Care Provider [phone] Allergies Active Allergy Reactions Criticality Noted Date Comments Alfuzosin Hcl Er Other (See Comments) 6 Pruiritic Rash Aspirin 10/27/2023 Levofloxacin Other (See Comments) 10/16/2012 Abd pain Lisinopril 10/19/2020 Cough Medications Medication Sig Dispensed Refills Start Date End Date Status apixaban (ELIQUIS) 5 MG TABS tablet Take by mouth every 12 (twelve) hours. 0 Active Cholecalciferol (D3-1000 PO) Take by mouth. 0 Active omeprazole (PriLOSEC) 20 MG capsule Take 1 capsule (20 mg total) by mouth daily. 0 Active cetirizine (ZyrTEC) 10 MG tablet Take 1 tablet (10 mg total) by mouth daily. 0 Active losartan (COZAAR) tablet 25 mg Take 1 tablet (25 mg total) by mouth daily. 0 Active Active Problems Problem Noted Date Diagnosed Date Essential hypertension 12/06/2019 Overweight (BMI 25.0-29.9) 08/16/201910/27 Pulmonary nodule 03/10/2018 10/27/2023 Ex-smoker 02/11/2018 10/27/2023 BPH (benign prostatic hyperplasia) 04/27/2012 10/27/2023 Family History Medical History Relation Name Comments Throat cancer Brother Prostate cancer Father Relation Name Status Comments Brother Father Mother Social History Tobacco Use Types Packs/Day Years Used Date Smoking Tobacco: Former Cigarettes Smokeless Tobacco: Never Alcohol Use Standard Drinks/Week Comments Not Currently 0 (1 standard drink = 0.6 oz pur e alcohol) Sex and Gender Information Value Date Recorded Sex Assigned at Not on file Gender Identity Not on file Sexual Orientation Not on file Job Start Date Occupation Industry Not on file Not on file Not on file Last Filed Vital Signs Vital Sign Reading Time Taken Comments Blood Pressure 162/70 02/17/2024 10:24 AM EDT Pulse 70 02/17/2024 10:24 AM EDT Temperature 36.6 ??C (97.9 ??F) 02/17/2024 10:24 AM E DT Respiratory Rate - - Oxygen Saturation 99% 02/17/2024 10:24 AM EDT Inhaled Oxygen Concentration - - Weight 77.1 kg (170 lb) 02/17/2024 10:24 AM EDT Height 170.2 cm (5' 7 ) 02/17/2024 10:24 AM EDT Body Mass Index 26.63 02/17/2024 10:24 AM EDT Plan of Treatment Health Maintenance Due Date Last Done Comments Hepatitis C Screening 1945 COVID-19 Vaccine (#1) 05[birth year]14/1946 Depression Screening 1958 Preventative Health Evaluation 1964 Shingrix-Zoster Vaccine (1 of 2) 1996 Fall Risk Assessment 2011 RSV Adult > 60+ Yrs or (1 - 1-dose 75+ series) 2021 Influenza Vaccine (#1) 2024 8, 08/13/2017, 07/21/2014, Additional history exists DTap / Tdap / Td (2 - Td or Tdap) 09/11/2026 09/11/2016 Pneumococcal Vaccine Completed 01/30/2018, 03/29/20 15 Hepatitis B Vaccines Aged Out No long er eligible based on patient's age to complete this topic RSV Ped < 20 months Aged Out No longe r eligible based on patient's age to complete this topic Care Teams Personal Service Workers Relationship Specialty Start Date End Date Jorden Arteaga MD PCP - General Internal Medicine 09/10/23
--- OUTSIDE RECORDS SUMMARY | 2024-11-10 08:29 | XMS_ITS | Encounter Summary ---
Author Organization [facility] Address [address] [place] [address] Care Team Providers Care Commercial Agent Name Role Phone Name, Rosas HOBSON Primary Care Provider Jorden Olivarez MD Primary Care Provider [phone] Name, Rosas HOBSON Primary Care Provider Jorden Olivarez MD Primary Care Provider [phone] Encounter Details Date Type Department Care Team Description 04/28/2012 Lead Maintenance Technician Report Medical Records [address] [place] [id number] Mitchell Day, PALizzieC Social History Tobacco Use Types Packs/Day Years Used Date Smoking Tobacco: Former Cigarettes 0.5 15 Comments:stopped for 5 yrs t hen restarted quit 09/2009 Alcohol Use Standard Drinks/Week Comments No 0 (1 standard drink = 0.6 oz pur e alcohol) Sex Assigned at Date Recorded Not on file Job Start Date Occupation Industry Not on file Not on file Not on file documented as of this encounter Plan of Treatment Not on file documented as of this encounter Visit Diagnoses Not on filedocumented in this encounter Care Teams Commercial Agent Relationship Specialty Start Date End Date Name, MD Rosas PCP - General 04/13/07 09/05/15 Jorden Arteaga MD [address] [place] [address] PCP - General Internal Medicine 09/06/15 06/03/16 NameRosas MD [address] [place] [address] PCP - General Internal Medicine 06/04/16 06/30/16 Jorden Arteaga MD [address] [place] [address] PCP - General Internal Medicine 07/01/16 documented as of this encounter
--- OUTSIDE RECORDS SUMMARY | 2024-11-10 08:30 | XMS_ITS | Encounter Summary ---
Author Organization [facility] Address [address] [place] [address] Care Team Providers Care Pit Inspector Name Role Phone Jorden Arteaga MD Primary Care Provider [phone] Encounter Details Date Type Department Care Team Description 04/05/2020 Sergeant Missile Crewman Report Medical Records [address] [place] [id number] Baylee Smith PA-C Social History Tobacco Use [...] on filedocumented in this encounter Care Teams Pit Inspector Relationship Specialty Start Date End Date Jorden Arteaga MD [address] [place] [address] PCP - General Internal Medicine 07/01/16 documented as of this encounter
--- OUTSIDE RECORDS SUMMARY | 2024-11-10 08:30 | XMS_ITS | Encounter Summary ---
Author Organization [facility] Address [address] [place] [address] Care Team Providers Care Supervisor Pressing Department Name Role Phone Jorden Arteaga MD Primary Care Provider [phone] Encounter Details Date Type Department Care Team Description 09/11/2016 Business Doc Medical Records [address] [place] [address] Abstract, Provider Social History Tobacco Use Types Packs/Day Years [...] filedocumented in this encounter Care Teams Supervisor Pressing Department Relationship Specialty Start Date End Date Jorden Arteaga MD [address] [place], [place] [phone] PCP - General Internal Medicine 07/01/16 documented as of this encounter
--- OUTSIDE RECORDS SUMMARY | 2024-11-10 08:30 | XMS_ITS | Encounter Summary ---
Author Organization [facility] Address [address] [place] [address] Care Team Providers Care Dental Appliance Fixer Name Role Phone Jorden Arteaga MD Primary Care Provider [phone] Encounter Details Date Type Department Care Team Description 11/29/2016 Manager Truck Report Medical Records [address] [place] [address] Abby Moore Social History Tobacco Use Types Packs/Day Years [...] on filedocumented in this encounter Care Teams Dental Appliance Fixer Relationship Specialty Start Date End Date Jorden Arteaga MD [address] [place] [address] PCP - General Internal Medicine 07/01/16 documented as of this encounter
--- OUTSIDE RECORDS SUMMARY | 2024-11-10 08:30 | XMS_ITS | Encounter Summary ---
Author Organization [facility] Address [address] [place] [address] Care Team Providers Care Sagger Maker Name Role Phone Jorden Arteaga MD Primary Care Provider Encounter Details Date Type Department Care Team Description 05/25/2020 Dermatology Sales Representative Report Medical Records [address] [place] [address] Ed Roberts MD Social History Tobacco Use [...] on filedocumented in this encounter Care Teams Sagger Maker Relationship Specialty Start Date End Date Jorden Arteaga MD [address] [place] [address] PCP - General Internal Medicine 07/01/16 documented as of this encounter
--- OUTSIDE RECORDS SUMMARY | 2024-11-10 08:30 | XMS_ITS | Encounter Summary ---
Author Organization [facility] Address [address] [place] [address] Care Team Providers Care Sales Agent Insurance Name Role Phone Jorden Arteaga MD Primary Care Provider [phone] Encounter Details Date Type Department Care Team Description 06/21/2020 Veterinary Milk Specialist Report Medical Records [address] [place] [address] Ed Roberts MD Social History Tobacco Use [...] on filedocumented in this encounter Care Teams Sales Agent Insurance Relationship Specialty Start Date End Date Jorden Arteaga MD [address] [place] [address] PCP - General Internal Medicine 07/01/16 documented as of this encounter
--- OUTSIDE RECORDS SUMMARY | 2024-11-10 08:31 | XMS_ITS | Encounter Summary ---
Author Organization [facility] Address [address] [place] [address] Care Team Providers Care Lead Custodian Name Role Phone Jorden Arteaga MD Primary Care Provider Reason for Referral * EXTERNAL (Routine) - Authorized/Booked Specialty Diagnoses / Procedures Referred By Contac t Referred To Contact General Surgery Diagnoses FHx: breast cancer Procedures REFERRAL TO ADULT GENETICS Jorden Arteaga MD [address] [place] [id number] Genetics, [address] [place] [address] [address] Referral ID Status Reason Start Date Expiration Date V isits Requested Visits Authorized SEE NOTE Authorized/B ooked 12/31/2019 04/03/2020 1 1 Reason for Visit * Reason Onset Date Comments Crime Prevention Worker Feedback 12/31/2019 genetics Encounter Details Date Type Department Care Team Description 12/31/2019 Telephone Adult Medicine [address] [address] Jorden Arteaga MD [address] [place] [address] Crime Prevention Worker Feedback (genetics) Social History Tobacco Use Types Packs/Day Years [...] encounter Miscellaneous Notes * Telephone Encounter - Ginger Mckee - 12/31/2019 2:[address] Arteaga, You have recently placed an order for this patient for genetic testing. This order needs to be changed to an external order.I have pended you an external genetic testing order. Please review and signpended order. Thank you, Ginger Referrals Fabrication Engineer [facility] Referrals Department documented in this encounter Plan of Treatment Not on file documented as of this encounter Visit Diagnoses Diagnosis FHx: breast cancer- Primary Family history of malignant neoplasm of breast documented in this encounter Care Teams Lead Custodian Relationship Specialty Start Date End Date Jorden Arteaga MD [address] [place] [address] PCP - General Internal Medicine 07/01/16 documented as of this encounter
--- OUTSIDE RECORDS SUMMARY | 2024-11-10 08:32 | XMS_ITS | Encounter Summary ---
Author Organization [facility] Address [address] [place] [address] Care Team Providers Care Nursing Information Systems Coordinator Name Role Phone Jorden Arteaga MD Primary Care Provider [phone] Encounter Details Date Type Department Care Team Description 10/06/2019 Clutch Operator Report Medical Records [address] [place] [address] Baylee Smith PA-C Social History Tobacco Use [...] on filedocumented in this encounter Care Teams Nursing Information Systems Coordinator Relationship Specialty Start Date End Date Jorden Arteaga MD [address] [place] [address] PCP - General Internal Medicine 07/01/16 documented as of this encounter
--- OUTSIDE RECORDS SUMMARY | 2024-11-10 08:32 | XMS_ITS | Encounter Summary ---
Author Organization [facility] Address [address] [place] [address] Care Team Providers Care Professor Of Music Name Role Phone Jorden Arteaga MD Primary Care Provider [phone] Encounter Details Date Type Department Care Team Description 11/24/2023 Auto Body Repairer Fiberglass Report Medical Records [address] [place] [phone] Dong Berkowitz Social History Tobacco Use Types Packs/Day Years [...] on filedocumented in this encounter Care Teams Professor Of Music Relationship Specialty Start Date End Date Jorden Arteaga MD [address] [place] [address] PCP - General Internal Medicine 07/01/16 documented as of this encounter
--- OUTSIDE RECORDS SUMMARY | 2024-11-10 08:32 | XMS_ITS | Encounter Summary ---
Author Organization [facility] Address [address] [place] [address] Care Team Providers Care Burr Grinder Name Role Phone Jorden Arteaga MD Primary Care Provider [phone] Encounter Details Date Type Department Care Team Description 12/02/2023 Chief Clinical Officer Report Medical Records [address] [place] [id number] Dottie Cervantes MD Social History Tobacco Use Types Packs/Day [...] on filedocumented in this encounter Care Teams Burr Grinder Relationship Specialty Start Date End Date Jorden Arteaga MD [address] [place] [address] PCP - General Internal Medicine 07/01/16 documented as of this encounter
--- OUTSIDE RECORDS SUMMARY | 2024-11-10 08:33 | XMS_ITS | Encounter Summary ---
Author Organization [facility] Address [address] [place] [address] Care Team Providers Care Personnel Quality Assurance Auditor Name Role Phone Jorden Arteaga MD Primary Care Provider [phone] Encounter Details Date Type Department Care Team Description 03/04/2019 Swine Genetics Researcher Report Medical Records [address] [place] [address] Baylee Smith PA-C Social History Tobacco Use [...] on filedocumented in this encounter Care Teams Personnel Quality Assurance Auditor Relationship Specialty Start Date End Date Jorden Arteaga MD [address] [place] [address] PCP - General Internal Medicine 07/01/16 documented as of this encounter
--- OUTSIDE RECORDS SUMMARY | 2024-11-10 08:34 | XMS_ITS | Encounter Summary ---
Author Organization [facility] Address [address] [place] [address] Care Team Providers Care Transportation Mechanic Name Role Phone Jorden Arteaga MD Primary Care Provider [phone] Encounter Details Date Type Department Care Team Description 03/31/2019 Building Services Supervisor Report Medical Records [address] [place] [address] Ed Roberts MD Social History Tobacco Use [...] on filedocumented in this encounter Care Teams Transportation Mechanic Relationship Specialty Start Date End Date Jorden Arteaga MD [address] [place] [address] PCP - General Internal Medicine 07/01/16 documented as of this encounter
== END 2024-11-10 08:13 | disposition home or self-care (01) ==
LOC: HO.HOSX 08:12
DX: M25.522 Pain in left elbow (principal); S52.122A Displaced fracture of head of left radius, initial encounter for closed fracture; S42.462A Displaced fracture of medial condyle of left humerus, initial encounter for closed fracture
CPT/HCPCS: 73080; 99212

== ENCOUNTER 2024-11-10 12:48 | Outpatient (AMB) | payer OTHER, SELFPAY ==
--- NOTE | 2024-11-10 13:13 | A.OFFVIS_ITS ---
Intake Visit Reasons: OV- left radial head fx DOI: 08/16/2024 Intake Note: Topher is a 78 year old right hand dominant male who presents today for follow up s/p medial condyle of elbow & left radial head fracture s/p fall DOI: 08/16/2024. At his last visit, patient was advised he should completely discontinue wearing the sling and to begin active pronation and supination without resistance. Patient was also advised that he should avoid any heavy lifting in the left upper extremity, with a 5 lb weight limit. Patient has been feeling better but he has times when he gets some discomfort when he is using his hand. Allergies aspirin [ASA] Allergy (Unknown, Verified 11/10/24 13:15) Rash HPI HPI OV- left radial head fx DOI: 08/16/2024: Details: Topher is a 78 year old right hand dominant male who presents today for follow up s/p medial condyle of elbow & left radial head fracture s/p fall DOI: 08/16/2024. At his last visit, patient was advised he should completely discont inue wearing the sling and to begin active pronation and supination without resistance. Patient was also advised that he should avoid any heavy lifting in the left upper extremity, with a 5 lb weight limit. Patient has been feeling better but he has times when he gets some discomfort when he is using his hand. [facility] Medical History Anxiety Insomnia Overweight (BMI 25.0-29.9) Benign prostatic hyperplasia GERD without esophagitis COPD (chronic obstructive pulmonary disease) Benign essential hypertension Bronchitis Surgical History History of inguinal hernia repair History of prostatectomy History of appendectomy Family History Father Prostate cancer Brother Throat cancer Unknown No problems noted. Family/Other Breast CA Other Family history non-contributory Social History Household Members: None Alcohol intake: never Patient Tobacco Use Status: Never used Tobacco service: No Current occupational status: retired Review of Systems Const All systems reviewed & are unremarkable except as noted in HPI and below Physical Exam Extrem Other: On inspection, there is no visible deformity of the patient's left wrist or elbow No erythema, edema, ecchymosis noted No lacerations, abrasions, open areas No evidence of infection Patient does report mild tenderness to palpation over the medial epicondyle and radial head of the left elbow No tenderness to palpation of the lateral epicondyle or olecranon process of left elbow Patient is able to extend the left elbow to approximately 10 degrees and flex to approximately 120 degrees without difficulty at this time Patient was able to actively pronate and supinate the left forearm, but does report discomfort when doing so Good endpoints and no ligamentous laxity with varus and valgus testing of the left elbow Distal sensation intact Capillary refill brisk Results Reviewed Results Reviewed: X-rays obtained in the office today and independently reviewed by me, Russell Cintron PA-C, demonstrate minimally displaced avulsion fracture of the medial epicondyle, as well as nondisplaced fracture of the left radial head with evidence of interval bone healing. Assessment & Plan Assessment & Plan (1) Fracture of medial condyle of elbow: Code(s): S42.463A - Displaced fracture of medial condyle of unspecified humerus, initial encounter for closed fracture Category: Medical (2) Left radial head fracture: Code(s): S52.122A - Displaced fracture of head of left radius, initial encounter for closed fracture Category: Medical Plan 1. Nondisplaced radial head fracture of the left elbow 2. Minimally displaced medial epicondyle fracture of left elbow no ligamentous laxity Patient is educated about these injuries of the typical recovery course Patient was advised that he should completely discontinue wearing the sling Patient was advised that he can continue active pronation and supination at this time, but it should not be against resistance Patient was also advised that he should avoid any heavy lifting in the left upper extremity, with a 5 lb weight limit Patient expresses understanding this and is amenable to this plan Patient will follow-up in 6 weeks with repeat x-rays, sooner with any acute concerns Orders: Orders XR elbow LT min 3V Today M25.522 - Pain in left elbow Coding Level of Care Code Global (62311) Diagnoses Fracture of medial condyle of elbow S42.463A Left radial head fracture S52.122A
--- OUTSIDE RECORDS SUMMARY | 2024-11-10 14:11 | XMS_ITS ---
Author Organization [facility] Address [address] [place] [address] Care Team Providers Care Pre Fabricator Name Role Phone Manas Arteaga MD Primary Care Provider Jermaine Diaz Unavailable [phone] Allergies No Known Allergies REASON FOR VISIT Fungal Nails Medications Medication SIG (Take, Route, Fr equency, Duration) Notes Start Date End Date Status Omeprazole Active Spiriva HandiHaler N ot-Taking Ciclopirox 0.77 % APPLY 1 APPLICATION TOPICALLY TO AFFECTED AREA TWICE DAILY for 30 Active Cetirizine HCl Activ e Social History Tobacco Use: Social History Observation Description Date Details (start date - stop date) Never Smoker NA - NA Alcohol Screen Question Answer Notes Did you have a drink containing alcohol in the p ast year? No Points 0 Interpretation Negative Tobacco use other than smoking: Question Answer Notes Are you an other tobacco user? No Tobacco Control (Standard) Question Answer Notes Tobacco use: Nonsmoker Additional Findings: Tobacco non-user Current no nsmoker Vital Signs Height 5ft 7in in 10/14/2024 Weight 170 lbs 10/14/2024 BMI 26.62 kg/m2 10/14/2024 Blood pressure systolic 125 mm Hg 10/14/19 25 Blood pressure diastolic 59 mm Hg 025 Encounters [facility]counter [facility] [address] [address] 10/14/2024 Jermaine Betancourt Tinea unguium B35.1 and Pain in left toe(s) M79.675 Assessments Encounter Date Diagnosis (ICD Code) Assessment Notes Treatment Notes Treatment Clinical Notes Section Notes 10/14/2024 Tinea unguium (ICD-10 - B35.1) 10/14/2024 Pain in left toe(s) (ICD-10 - M79.675) Plan Of Treatment Next Appt Details Follow Up: prn, Reason: Progress Notes * Topher FLORESDOB:1945 (78 yo M)Acc No.[id number]:10/14/2024 Progress Note Patient:Topher ROY Provider:?Jermaine Betancourt DPM :1945???Age:78 Y???Sex:Male Jesse e:10/14/2024 Address:[address] [place] [address] [facility] Pcp:Manas Arteaga MD Subjective: * Chief Complaints: * ???Fungal Nails * HPI: ???Painful Nails:?Location:?NOW , Left foot.?Aggravated by:?any pressure , shoegear causing difficulty standing/walking.?Treatments:?Coclopirox topical gel, since, , still, relates adherence to recom tx, still, denies any adverse side effects to medication , (i.e. adjacent periungual skin irritation, inflammation, erosion) , Lamisil , Oral Antifungal ,- - with intermittent dosage due to missing LFTs,?denied any adverse side effects to medication , (i.e. rash, hives, taste/GI disturbance, yellow skin/eye discoloration, discolored stools, or any other unusual bodily complaints).?Misc:?Baseline LFT 1 normal , Follow up LFT 2 - normal.? * ROS:?General/Constitutional:?Nausea?denies.?Vomiting?denies.?Hunger Thirst?denies.?Loss appetite?denies.?Chills?denies.?Fatigue?denies.?Fever?denies.?Night Sweats?denies.?Unexplained weight loss?denies.?Unexplained weight gain?admits.?HEENTM:?Dentures?denies.?Dizziness?denies.?Glasses/contacts?admits.?Retinopathy?de nies.?Blurred/double vision?denies.?TMJ?denies.?Discharge/drainage?denies.?Implants?denies.?Sore throat?denies.?Dental implants?denies.?Hard of hearing ?denies.?Difficulty chewing/swallowing/speaking?denies.?Nose bleeds?denies.?Sore mouth?denies.?Respiratory:?On Oxygen?denies.?Pneumonia/pleurisy?denies.?Bronchitis?denies.?Emphysema?denies.?C oughing?denies.?Cough blood?denies.?Shortness of breath?denies.?Wheezing?admits.?Cardiovascular:?Pacemaker?denies.?MVP?denies.?WPW?denies.?CHF?denies.?Heart attack?denies.?Septal defect?denies.?Rapid beat?denies.?Chest pain ?denies.?Atrial Fib.?denies.?Murmur/Palpitations?denies.?Gastrointestinal:?Hemorrhoids?denies.?Stomach/Abdominal pain?denies.?Dark blood stool?denies.?Irritable bowel ?denies.?Constipation?denies.?Diarrhea?denies.?Hematology:?Swelling?denies.?Clots?denies.?Varicose Veins?denies.?Bruising?denies.?Bleeding problem?denies.?Genitourinary:?Blood urine?admits.?Frequent/Painfu/urination/bladder control?denies.?Kidney stones?denies.?Infection (UTI)?denies.?Nephropathy?denies.?sex trans dis (STD)?denies.?Prostate?admits.?Musculoskeletal:?Hammertoes?denies.?Bunions?denies.?Back Pain?denies.?Muscle Cramps/ Resting?denies.?Muscle cramps / walking?denies.?Generalized aches and pains?denies.?Weakness?denies.?Integ.:?Sagastume?denies.?Scars?denies.?Corns/calluses?denies.?Ingrown nails?denies.?Painful nails?admits.?Open Sores?denies.?Rashes?denies.?Neurologic:?Difficulty sleeping?admits.?Brain disorder?denies.?Numbness?denies.?Balance trouble?denies.?Confusion?denies.?Fainting/blackouts?denies.?Tingling?denies.?Tr emors?denies.? * Medical History:? * Surgical History:?hernia pro state * Hospitalization/Major Diagno stic Procedure:[facility], fractured left elbow 2023 * Family History:?Mother: dece ased.?Father: , diagnosed with Other malignant neoplasm of unspecified site.?Siblings: diagnosed with Other malignant neoplasm of unspecified site.? * Social History:?Tobacco Use:?Tobacco use other than smoking?Are you an other tobacco user??No ?Tobacco Control (Standard)?Tobacco use:?Nonsmoker ?Additional Findings: Tobacco non-user?Current nonsmoker ???Drugs/Alcohol:?Drugs?Have you used drugs other than those for medical reasons in the past 12 months??No ?Alcohol Screen?Did you have a drink containing alcohol in the past year??No ?Points?0 ?Interpretation?Negative ???Miscellaneous:?Caffeine: yes, frequency:. ?Children: yes. ?Exercise: yes, walking. ?Marital status: single. ?Occupation: Retired. * Medications:?TakingOmeprazol e Cetirizine HCl Ciclopirox 0.77 % Gel APPLY 1 APPLICATION TOPICALLY TO AFFECTED AREA TWICE DAILY Taking Omeprazole Taking Cetirizine HCl Taking Ciclopirox 0.77 % Gel APPLY 1 APPLICATION TOPICALLY TO AFFECTED AREA TWICE DAILY Not-Taking/PRNSpiriva HandiHaler Medication List reviewed and reconciled with the patientNot-Taking/PRN Spiriva HandiHaler Medication List reviewed and reconciled with the patient * Allergies:?N.K.D.A.yes[Aller gies Verified] Objective: * Vitals:?Ht: 5ft 7in, Wt: 170 , BMI: 26.62, Shoe size: 7.5, BP: 125/59 mm Hg, Wt- k.11 kg. * Examination: ???Nails: ?NAILS are:?NOW, RESOLVED, 1-5 Left foot.? Assessment: * Assessment: 1.?Tinea unguium - B35.1 (Pr imary)???Specify :Chronic problem, Stable (1=3,2=4) Response to treatment - Improvement Resolved???2.?Pain in left toe(s) - M79.675??? Plan: * Treatment: * Procedure Codes:? * Preventive Medicine:? ??Counseling:?Discussion:?-12: Office or other outpatient visit for the evaluation and management of an established patient, which required a medically appropriate history and/or examination and STRAIGHTFORWARD level of MEDICAL DECISION MAKING, 1 SELF-LIMITED OR MINOR PROBLEM, MINIMAL- NO AMOUNT/COMPLEXITY OF DATA TO BE REVIEWED/ANALYZED, AND MINIMAL RISK OF COMPLICATION/MORBIDITY. The visit on the day of the encounter encompassed interpreting the data and educating the patient as to the nature of their condition, treatment options available according to their individual PMH, meds, allergies, and overall health/living conditions, as well as any potential risks or complications that may occur from a failure to adhere to, and participate in, the recommended course of therapy. The discussion included a complete verbal, and/or written explanation of the examination results, any x-rays taken, the proposed diagnosis, and outline of the treatment plan. A schedule for future care needs was also explained. The patient verbalized an understanding of the instructions at this time and agreed to be an active participant in their treatment. If the patient should think of any questions or concerns after the visit, I have encouraged the patient to call the office.? ??Screening/Special Tests:?Fall Risk?Screening:?No falls in the past year ?FALLS: Screening for Future Fall Risk?Have you had any falls with injury in the past year??No * Follow Up:?prn * Images: * Sign off status: Completed true * Provider:?Jermaine Betancourt DPM Date:?2024 Generated for Israel nayak/Jean/German on:?11/10/2024 02:11 PM EST History and Physical Notes * HPI (History of Present Illness) Category Sub-Category Detail Notes Category Not es Painful Nails Aggravated by: any pressure , s hoegear causing difficulty standing/walking Location: NOW , Left foot Treatments: Coclopirox topical g el, since, , still, relates adherence to recom tx, still, denies any adverse side effects to medication , (i.e. adjacent periungual skin irritation, inflammation, erosion) , Lamisil , Oral Antifungal ,1- - with intermittent dosage due to missing LFTs, denied any adverse side effects to medication , (i.e. rash, hives, taste/GI disturbance, yellow skin/eye discoloration, discolored stools, or any other unusual bodily complaints) Misc: Baseline LFT 1 anoop l , Follow up LFT 2 - normal Examination Category Sub-Category Detail Notes Category Not es Nails NAILS are: NOW, RESOLVED, 1-5 Left foot
--- OUTSIDE RECORDS SUMMARY | 2024-11-10 14:11 | XMS_ITS | Patient Health Record ---
Author Organization [facility] [place] Address [address] [place] [address] Care Team Providers Care Injury/Safety Hazard Assessment Name Role Phone Manas Arteaga MD Primary Care Provider Jermaine Diaz Unavailable [phone] Allergies No Known Allergies Reason For Referral No Information Medications Medication SIG (Take, Route, Fr equency, [...] Additional Findings: Tobacco non-user Current no nsmoker Problems Problem Type SNOMED Code ICD Code Onset Dates Problem Status W/U Status Risk Notes Problem Tinea unguium (643466839) Tinea unguium (B35.1) Active confirmed Initial baseline LFT normal, LFT 2 normal as well Vital Signs Blood pressure diastolic 59 mm Hg 10/14/2024 Height 5ft 7in in 10/14/2024 Blood pressure systolic 125 mm Hg 10/14/2024 Weight 170 lbs 10/14/2024 BMI 26.62 kg/m2 10/14/2024 Encounters Encounter Location Date [facility] [address] [place] [address] 01/08/2024 Jermaine Betancourt Tinea unguium B35.1 and Pain in left toe(s) M79.675 [facility] [address] [address] 04/08/2024 Jermaine Betancourt Tinea unguium B35.1 ; Pain in left toe(s) M79.675 and Pain in right toe(s) M79.674 [facility] [address] [address] 07/15/2024 Jermainejovita Betancourt Tinea unguium B35.1 and Pain in left toe(s) M79.675 [facility] [address] [address] 10/14/2024 Jermaine Betancourt Tinea unguium B35.1 and Pain in left toe(s) M79.675 [facility] [address] [place] [address] 01/16/2024 Jermaine Betancourt Assessments Encounter Date Diagnosis (ICD Code) Assessment Notes Treatment Notes Treatment Clinical Notes Section Notes 01/08/2024 Tinea unguium (ICD-10 - B35.1) Initial baseline LFT normal, Last month of Lamisil pending results of LFT 2 01/08/2024 Pain in left toe(s) (ICD-10 - M79.675) 04/08/2024 Tinea unguium (ICD-10 - B35.1) Initial baseline LFT normal, LFT 2 normal as well 04/08/2024 Pain in left toe(s) (ICD-10 - M79.675) 07/15/2024 Tinea unguium (ICD-10 - B35.1) 07/15/2024 Pain in left toe(s) (ICD-10 - M79.675) 10/14/2024 Tinea unguium (ICD-10 - B35.1) 10/14/2024 Pain in left toe(s) (ICD-10 - M79.675) 04/08/2024 Pain in right toe(s) (ICD-10 - M79.674) Plan Of Treatment Pending Test Test Name Order Date *Liver Function Test (LFT) 07/28/2023 *Liver Function Test (LFT) 01/08/2024 Insurance Providers Payer Name Payer Address Payer Phone Subscriber Number Group Number Insured Name Patient Relationship to Insured Coverage Start Date Coverage End Date [id number] [address] [address] [place] [phone] [id number] Topher Luis Self - patient is the insured Medical (General) History Medical History History ICD Code Arthritis Measles Surgical History Surgery Date(Month/Year) hernia prostate Hospitalization History Reason Date(Month/Year) [facility] pt fell, fractured left elbow 2023 [facility]- blood clot in leg 07/2023
--- OUTSIDE RECORDS SUMMARY | 2024-11-10 14:11 | XMS_ITS ---
Author Organization [facility] Address [address] [place] [address] Care Team Providers Care Business Communications Instructor Name Role Phone Manas Arteaga MD Primary Care Provider Jermaine Diaz Unavailable [phone] Allergies No Known Allergies REASON FOR VISIT Fungal Nails Medications Medication SIG (Take, Route, Fr equency, Duration) Notes Start Date End Date Status Ciclopirox 0.77 % 1 application to aff ected area Externally Twice a day for 365 days Active LamISIL 250 MG 1 tablet Orally Once a day for 30 days 10/27/2023 Active Spiriva HandiHaler N ot-Taking Omeprazole Active Cetirizine HCl Activ e Social History Tobacco Use: Social History Observation Description Date Details (start date - stop date) Former Smoker NA - NA Tobacco Use/Smoking Question Answer Notes Are you a: former smoker Additional Findings: Tobacco Non-User Current no n-smoker Alcohol Screen Question Answer Notes Did you have a drink containing alcohol in the p ast year? No Points 0 Interpretation Negative Tobacco use other than smoking: Question Answer Notes Are you an other tobacco user? No Vital Signs Height 5ft 7in in 04/08/2024 Weight 170 lbs 04/08/2024 BMI 26.62 kg/m2 04/08/2024 Encounters Encounter Location Date [facility] [address] [address] 04/08/2024 Jermaine Betancourt Tinea unguium B35.1 ; Pain in left toe(s) M79.675 and Pain in right toe(s) M79.674 Assessments Encounter Date Diagnosis (ICD Code) Assessment Notes Treatment Notes Treatment Clinical Notes Section Notes 04/08/2024 Tinea unguium (ICD-10 - B35.1) Initial baseline LFT normal, LFT 2 normal as well 04/08/2024 Pain in left toe(s) (ICD-10 - M79.675) 04/08/2024 Pain in right toe(s) (ICD-10 - M79.674) Plan Of Treatment Medication Medication Name Sig Start Date Stop Date Notes Ciclopirox 0.77 % 1 application to aff ected area Externally Twice a day for 365 days LamISIL 250 MG 1 tablet Orally Once a day for 30 days 09/30 Next Appt Details Follow Up: 3 Months, Reason: Progress Notes * Topher FLORESDOB:1945 (78 yo M)Acc No.[id number]:04/08/2024 Progress Note Patient:?Topher FLORES Provider:?Jermaine Betancourt DPM :1945???Age:78 Y???Sex:Male Jesse e:04/08/2024 Address:[address] [place], [place] [id number] Pcp:Manas Arteaga MD Subjective: * Chief Complaints: * ???Fungal Nails * HPI: ???Painful Nails:?Location:?Both feet.?Aggravated by:?any pressure , shoegear causing difficulty standing/walking.?Treatments:?Coclopirox topical gel, since, , still, relates adherence to recom tx, still, denies any adverse side effects to medication , (i.e. adjacent periungual skin irritation, inflammation, erosion) , Lamisil , Oral Antifungal , since , , HAS TAKEN 2 MONTHS OF LAMISIL UP TO DATE DUE TO MISSING LFT 2,?relates adherence to recom tx , denies any adverse side effects to medication [...] Procedure:[facility] * Family History:?Mother: dece ased.?Father: , diagnosed with Other malignant neoplasm of unspecified site.?Siblings: diagnosed with Other malignant neoplasm of unspecified site.? * Social History:?Tobacco Use:?Tobacco Use/Smoking?Are you a:?former smoker ?Additional Findings: Tobacco Non-User?Current non-smoker ?Tobacco use other than smoking?Are you an other tobacco user??No ???Drugs/Alcohol:?Drugs?Have you used drugs other than those for medical reasons in the past 12 months??No ?Alcohol Screen?Did you have a drink containing alcohol in the past year??No ?Points?0 ?Interpretation?Negative ???Miscellaneous:?Caffeine: yes, frequency:. ?Children: yes. ?Exercise: yes, walking. ?Marital status: single. ?Occupation: Retired. * Medications:?TakingOmeprazol e Cetirizine HCl Ciclopirox 0.77 % Gel 1 application to affected area Externally Twice a day Taking Omeprazole Taking Cetirizine HCl Taking Ciclopirox 0.77 % Gel 1 application to affected area Externally Twice a day Not-Taking/PRNLamISIL 250 MG Tablet 1 tablet Orally Once a day Spiriva HandiHaler Medication List reviewed and reconciled with the patientNot-Taking/PRN LamISIL 250 MG Tablet 1 tablet Orally Once a day Not-Taking/PRN Spiriva HandiHaler Medication List reviewed and reconciled with the patient * Allergies:?N.K.D.A.yes[Aller gies Verified] Objective: * Vitals:?Ht: 5ft 7in, Wt: 170 , BMI: 26.62, Shoe size: 7.5, Wt-k.11 kg. * Examination: ???Nails: ?NAILS are:?STILL, Elongated, overgrown, dystrophic, lytic, greater than 3mm thick, discolored and friable with crumbly malodorous subungual debris, with pain on palpation, 1-5 B/L.?Vascular: ?DP PULSES (B):?1/4, B/L.?PT PULSES (B):?2/4, B/L.?CAPILLARY FILL TIME:?3 secs. per digit, B/L.?TROPHIC CONDITION-TEXTURE/ELASTICITY/TURGOR/HAIR GROWTH (B):?normal, B/L.?TEMPERTURE GRADIENT (C):?normal, warm to cool, proximal to distal, B/L, B/L.?PIGMENTATION:?normal, B/L.?EDEMA (C):?absent, B/L.?Dermatologic: ?SKIN FINDINGS:?Skin exam reveals normal color, texture, elasticity, and turgor. There are no masses, nor excrescences. The interspaces are clear, B/L.?Orthopedic: ?MUSCLE STRENGTH:?5/5 all groups in a symmetrical fashion , B/L.?Neurological: ?SENSORY:?Neurological exam reveals intact sensorium, pain sensation normal, vibration sensation intact, pinprick sensation is normal in the lower extremities, Pt denies, anesthesia, burning, paresthesia, tingling, B/L.?General Examination: ?GENERAL APPEARANCE:?Reveals a pleasant, alert, well nourished, well- developed, well hydrated individual, who demonstrates proper attention to hygiene/body habitus, and is in no acute distress, Pt serves as own historian for office visit today.?ORIENTED:?person, place, and time.? Assessment: * Assessment: 1.?Tinea unguium - B35.1 (Pr imary)???Specify :Chronic problem, Worse (4),Rx Management (4),Response to treatment - Unresolved???Notes :Initial baseline LFT normal, LFT 2 normal as well???2.?Pain in left toe(s) - M79.675???3.?Pain in right toe(s) - M79.674??? Plan: * Treatment: * Procedure Codes:? * Preventive Medicine:? ??Counseling:?Discussion:?-14: Office or other outpatient visit for the evaluation and management of an established patient, which required a medically appropriate history and/or examination and MODERATE level of DECISION MAKING for: 1 OR MORE CHRONIC PROBLEM(S) THATS WORSENING, 2 STABLE CHRONIC PROBLEMS, A NEWLY DIAGNOSED PROBLEM WITH UNCERTAIN PROGNOSIS, AN ACUTE COMPLICATED INJURY WITH MULTIPLE TREATMENT OPTIONS, OR AN ACUTE PROBLEM WITH ACCOMPANYING SYSTEMIC SYMPTOMS, THAT POSE(S) A MODERATE RISK OF MORBIDITY. THIS CONDITION MAY ALSO INCLUDE RX DRUG MANAGEMENT, OR A DECISON FOR MINOR SURGERY. The visit on the day of the [...] have encouraged the patient to call the office.?Fungal Nail Counseling:?The Pt prefers to complete PO treatment, The last month of Lamisil was rxed, Pt is to Cont Ciclopirox 0.77 gel as Rxed. Apply as directed to nails twice daily, Nail debridement performed extensively to reduce/remove overall nail length, girth, thickness, subungual debris, and necrotic tissue, by manual and electrical means through the use of a nail nipper and/or dremel, to more viable healthy nail plate or bed tissue. Silver nitrate used for any petechial bleeding as necessary.? ??Screening/Special Tests:?Fall Risk?Screening:?No falls in the past year ?FALLS: Screening for Future Fall Risk?Have you had any falls with injury in the past year??No * Follow Up:?3 Months * Images: * Sign off status: Completed true * Provider:?Jermaine Betancourt DPM Date:?2023 Generated for Israel nayak/Jean/German on:?11/10/2024 02:11 PM EST History and Physical Notes * HPI (History of Present Illness) Category Sub-Category Detail Notes Category Not es Painful Nails Aggravated by: any pressure , s hoegear causing difficulty standing/walking Location: Both feet Treatments: Coclopirox topical g el, since, , still, relates adherence to recom tx, still, denies any adverse side effects to medication , (i.e. adjacent periungual skin irritation, inflammation, erosion) , Lamisil , Oral Antifungal , since , , HAS TAKEN 2 MONTHS OF LAMISIL UP TO DATE DUE TO MISSING LFT 2, relates adherence to recom tx , denies any adverse side effects to medication , (i.e. rash, hives, taste/GI disturbance, yellow skin/eye discoloration, discolored stools, or any other unusual bodily complaints) Misc: Baseline LFT 1 anoop l , Follow up LFT 2 - normal Examination Category Sub-Category Detail Notes Category Not es Neurological SENSORY: Neurological exa m reveals intact sensorium, pain sensation normal, vibration sensation intact, pinprick sensation is normal in the lower extremities, Pt denies, anesthesia, burning, paresthesia, tingling, B/L Dermatologic SKIN FINDINGS: Skin exam reveal s normal color, texture, elasticity, and turgor. There are no masses, nor excrescences. The interspaces are clear, B/L Orthopedic MUSCLE STRENGTH: 5/5 all groups in a symmetrical fashion , B/L General Examination GENERAL APPEARANCE: Reveals a pleasant, alert, well nourished, well-developed, well hydrated individual, who demonstrates proper attention to hygiene/body habitus, and is in no acute distress, Pt serves as own historian for office visit today ORIENTED: person, place, and t yasmeen Vascular DP PULSES (B): 1/4, B/L PT PULSES (B): 2/4, B/L CAPILLARY FILL TIME: 3 secs. per digit, B/L TEMPERTURE GRADIENT (C): normal, warm to cool, proximal to distal, B/L, B/L TROPHIC CONDITION-TEXTURE/ELASTICITY/TURGOR/HAIR GROWTH (B): normal, B/L EDEMA (C): absent, B/L PIGMENTATION: normal, B/L Nails NAILS are: STILL, Elongated , overgrown, dystrophic, lytic, greater than 3mm thick, discolored and friable with crumbly malodorous subungual debris, with pain on palpation, 1-5 B/L
--- OUTSIDE RECORDS SUMMARY | 2024-11-10 14:11 | XMS_ITS | Clinical Summary ---
Author Organization [facility] Address [address] [place] [address] Care Team Providers Care Commercial Fishing Vessel Operator Name Role Phone Jorden Arteaga MD Primary Care Provider [phone] Allergies Active Allergy Reactions Criticality Noted Date [...] age to complete this topic Care Teams Commercial Fishing Vessel Operator Relationship Specialty Start Date End Date Jorden Arteaga MD PCP - General Internal Medicine 09/10/23
--- OUTSIDE RECORDS SUMMARY | 2024-11-10 14:11 | XMS_ITS ---
Author Organization [facility] Address [address] [place] [address] Care Team Providers Care Scada Technician Name Role Phone Manas Arteaga MD Primary Care Provider Jermaine Diaz Unavailable [phone] Allergies No Known Allergies REASON FOR VISIT Fungal Nails Medications Medication SIG (Take, Route, Fr equency, Duration) Notes Start Date End Date Status Omeprazole Active Cetirizine HCl Activ e Ciclopirox 0.77 % 1 application to aff ected area Externally Twice a day for 365 days Active Spiriva HandiHaler N ot-Taking Social History Tobacco Use: Social History Observation [...] nsmoker Vital Signs Height 5ft 7in in 07/15/2024 Weight 170 lbs 07/15/2024 BMI 26.62 kg/m2 07/15/2024 Encounters [facility]counter [facility] [address] [place] [address] 07/15/2024 Jermaine Betancourt Tinea unguium B35.1 and Pain in left toe(s) M79.675 Assessments Encounter Date Diagnosis (ICD Code) Assessment Notes Treatment Notes Treatment Clinical Notes Section Notes 07/15/2024 Tinea unguium (ICD-10 - B35.1) 07/15/2024 Pain in left toe(s) (ICD-10 - M79.675) Plan Of Treatment Next Appt Details Follow Up: 3 Months, Reason: Progress Notes * Topher FLORESDOB:1945 (78 yo M)Acc No.[id number]:07/15/2024 Progress Note Patient:Topher ROY Provider:?Jermaine Betancourt DPM :1945???Age:78 Y???Sex:Male Jesse e:07/15/2024 Address:[address] [place] [address] [facility] Pcp:Manas Arteaga MD Subjective: * Chief Complaints: [...] to affected area Externally Twice a day Not-Taking/PRNSpiriva HandiHaler Not-Taking/PRN Spiriva HandiHaler DiscontinuedLamISIL 250 MG Tablet 1 tablet Orally Once a day Medication List reviewed and reconciled with the patientDiscontinued LamISIL 250 MG Tablet 1 tablet Orally Once a day Medication List reviewed and reconciled with the patient * Allergies:?N.K.D.A.yes[Aller gies Verified] Objective: * Vitals:?Ht: 5ft 7in, Wt:170, BMI: 26.62, Shoe size:7.5, Wt-k.11 kg. * Examination: ???Nails: ?NAILS are:?NOW, RESOLVED, Right foot, STILL Elongated, overgrown, dystrophic, lytic, greater than 3mm thick, discolored and friable with crumbly malodorous subungual debris, with pain on palpation, 1-5 Left foot, but with , proximal clearing of nail 60-70 percent each nail.? Assessment: * Assessment: 1.?Tinea unguium - B35.1 (Pr imary)???Specify :Chronic problem, Stable (1=3,2=4),Response to treatment - Improvement,Unresolved???2.?Pain in left toe(s) - M79.675??? Plan: * Treatment: * Procedure Codes:? * Preventive Medicine:? ??Counseling:?Discussion:?-13: Office or other outpatient visit for the evaluation and management of an established patient, which required a medically appropriate history and/or examination and LOW level of DECISION MAKING for: 1 STABLE ACUTE UNCOMPLICATED PROBLEM, 2 OR MORE MINOR PROBLEMS, OR 1 STABLE CHRONIC PROBLEM, THAT POSE(S) A LOW RISK FOR MORBIDITY/MORTALITY. The visit on the day of the [...] the patient to call the office.?Fungal Nail Counseling:?Pt is to Cont Ciclopirox 0.77 gel as [...] Not es Nails NAILS are: NOW, RESOLVED, R ight foot, STILL Elongated, overgrown, dystrophic, lytic, greater than 3mm thick, discolored and friable with crumbly malodorous subungual debris, with pain on palpation, 1-5 Left foot, but with , proximal clearing of nail 60-70 percent each nail
--- OUTSIDE RECORDS SUMMARY | 2024-11-10 14:11 | XMS_ITS | Clinical Summary ---
Author Organization [facility] [address] [place] [address] [place] [phone] Phone Care Team Providers Care Nanoelectronics Engineer Name Role Phone Jorden Arteaga MD Primary Care Provider [phone] Allergies Active Allergy Reactions Criticality Noted Date [...] 0 Refills, Maintenance, 03/12/22 10:20:00 EDT, Desi, [id number], Partial fill upon patient request if the [...] PM EST Office Visit Adult Medicine [address] [phone] Luca Nuñez PA Essential hypertension (Primary Dx); Screening for lipid disorders; Closed nondisplaced fracture of head of left radius, initial encounter; Closed nondisplaced fracture of medial condyle of left humerus, initial encounter; Heartburn; Chronic obstructive pulmonary disease, unspecified COPD type ([facility]) 08/23/2024 Telephone Adult Medicine [address] [phone] Jorden Arteaga MD Er Follow-Up ([facility] on 08/16/24) from Last 3 Months Immunizations [...] APPENDECTOMY PROCEDURE: HISTORICAL APPENDECTOMY ESOPHAGOGASTRODUODENOSCOPY 2004 PROCEDURE: MS ESOPHAGOGASTRODUODENOSCOPY TRANSORAL DIAGNOSTIC; COMMENT: Leonaogian; normal COLONOSCOPY 2004 PROCEDURE: HISTORICAL COLONOSCOPY; COMMENT: Leonaogian; normal COLONOSCOPY 07/02/20 12 PROCEDURE: HISTORICAL COLONOSCOPY; COMMENT: normal UPPER GASTROINTESTINAL ENDOSCOPY 01/02/20 17 PROCEDURE: MS UPPER GI ENDOSCOPY PERFORMED; COMMENT: No ulcers; [...] re flux disease) DVT (deep venous thrombosis) ([facility]) DX:DVT (deep venous thrombos is) ([facility]) Family History Medical History Relation Name Comments [...] 10:30 AM EDT Office Visit Pulmonolgy - [place] [address] [phone] Lalo Sarkar MD [address] [address] 03/15/2025 9:45 AM EDT Office Visit Adult Medicine [facility] [address] [place] [phone] Jorden Arteaga MD [address] [place] [phone] Health Maintenance Due Date Last Done Comments [...] LAB CHEMISTRY METHOD 09/09/2024 3:40 PM EST [facility] Triglycerides 229(H) 0 - 150 mg/dL LAB CHEMISTRY METHOD 09/09/2024 3:40 PM EST [facility] HDL 36(L) >=40 mg/dL LAB CHEMISTRY METHOD 09/09/2024 3:40 PM EST [facility] LDL Calculated 61 0 - 100 mg/dL LAB CHEMISTRY METHOD 09/09/2024 3:40 PM EST [facility] VLDL Cholesterol Gen 45.8 mg/dL LAB CHEMISTRY METHOD 09/09/2024 3:40 PM [facility] Non HDL Chol. (LDL+VLDL) 107 <145 mg/dL LAB CHEMISTRY METHOD 09/09/2024 3:40 PM [facility] Chol/HDL Ratio 4.0 0.0 - 4.4 LAB CHEMISTRY METHOD 09/09/2024 3:40 PM [facility] Blood Venous blood specimen / Unknown Venipuncture / Unknown 09/09/2024 11:52 AM EST 09/09/2024 11:52 AM EST Luca MALDONADO LAB BLOOD ORDERABLES Fi nal Result [facility] [address] [place] [address], * (ABNORMAL) Basic metabolic panel (09/09/2024 11:52 AM EST) Sodium 141 133 - 145 mmol/L LAB CHEMISTRY METHOD 09/09/2024 3:40 PM [facility] Potassium 4.3 3.5 - 5.5 mmol/L LAB CHEMISTRY METHOD 09/09/2024 3:40 PM [facility] Chloride 108 96 - 110 mmol/L LAB CHEMISTRY METHOD 09/09/2024 3:40 PM [facility] CO2 28 21 - 32 mmol/L LAB CHEMISTRY METHOD 09/09/2024 3:40 PM [facility] Anion Gap 5 3 - 11 LAB CHEMISTRY METHOD 09/09/2024 3:40 PM [facility] Glucose 104(H) 70 - 100 mg/dL LAB CHEMISTRY METHOD 09/09/2024 3:40 PM [facility] BUN 17 5 - 25 mg/dL LAB CHEMISTRY METHOD 09/09/2024 3:40 PM EST [facility] Creatinine 1.37(H) 0.70 - 1.30 mg/dL LAB CHEMISTRY METHOD 09/09/2024 3:40 PM [facility] eGFR 53(L) >=60 mL/min/1. 73m2 LAB CHEMISTRY METHOD 09/09/2024 3:40 PM EST [facility] Comment:Calculation based on the??Chronic Kidney Disease Epidemiology Collaboration (CKD-EPI) equation refit??without adjustment for race. BUN/Creatinine Ratio 12.4 LAB CHEMISTRY METHOD 09/09/2024 3:40 PM [facility] Calcium 9.1 8.5 - 10.5 mg/dL LAB CHEMISTRY METHOD 09/09/2024 3:40 PM [facility] Blood Venous blood specimen / Unknown Venipuncture / Unknown 09/09/2024 11:52 AM EST 09/09/2024 11:52 AM EST Luca MALDONADO LAB BLOOD ORDERABLES Fi nal Result [facility] [address] [place] [address], * External CT Report (08/16/2024) Anatomical Region Laterality Modality Computed Tomogra phy us Provider Onbase IMG CT PROCEDURES Final Resul t from Last 3 Months Insurance [employer] Care Teams Nanoelectronics Engineer Relationship Specialty Start Date End Date Jorden Arteaga MD [address] [place] [phone] PCP - General Internal Medicine 09/06/15
== END 2024-11-10 13:28 | disposition home or self-care (01) ==
DX: S42.462A Displaced fracture of medial condyle of left humerus, initial encounter for closed fracture (principal); S52.122A Displaced fracture of head of left radius, initial encounter for closed fracture
CPT/HCPCS: 99213

== ENCOUNTER → 2024-11-10 13:01 | Outpatient (BNV) | payer OTHER, SELFPAY | PROVIDERS: Visit Provider Radiology Diagnostic Radiology | DX: M25.552 Pain in left hip (principal) | CPT/HCPCS: 73080 ==

== ENCOUNTER 2024-12-22 12:55 | Outpatient (AMB) | payer OTHER, SELFPAY ==
[2024-12-22 12:59] VITALS: BMI 20.2
--- NOTE | 2024-12-22 12:59 | MHC.OFFVIS ---
Vital Signs 12/22/24 12:59 Height 5 ft 7 in Weight 129 lb BMI 20.2 Intake Visit Reasons: OV- left radial head fx DOI: 08/16/2024-w/xray Intake Note: Topher is a 79 year old right hand dominant male who presents today for a follow up of his Left Elbow Medial Condyle Fx & Radial Head Fracture 08/16/24. At his last visit he was advised to discontinue use of the sling, work on active pronation & supination. He was advised that he has a 5 lb weight limit of the left arm. Currently states he continues to have pain with movement. States he has worked on his ROM but continues to be limited. Allergies aspirin [ASA] Allergy (Unknown, Verified 12/22/24 13:06) Rash HPI HPI OV- left radial head fx DOI: 08/16/2024-w/xray: Details: Topher is a 79 year old right hand dominant male who presents today for a follow up of his Left Elbow Medial Condyle Fx & Radial Head Fracture 08/16/24. At his last visit he was advised to discontinue use of the sling, work on active pronation & supination. He was advised that he has a 5 lb weight limit of the left arm. Currently states he continues to have pain with movement. States he has worked on his ROM but continues to be limited. [facility] Medical History Anxiety Insomnia Overweight (BMI 25.0-29.9) Benign prostatic hyperplasia GERD without esophagitis COPD (chronic obstructive pulmonary disease) Benign essential hypertension Bronchitis Surgical History History of inguinal hernia repair History of prostatectomy History of appendectomy Family History Father Prostate cancer Brother Throat cancer Unknown No problems noted. Family/Other Breast CA Other Family history non-contributory Social History Household Members: None Alcohol intake: never Patient Tobacco Use Status: Never used Tobacco service: No Current occupational status: retired Review of Systems Const All systems reviewed & are unremarkable except as noted in HPI and below Physical Exam Vital Signs: BMI result Body Mass Index 20.2 Extrem Other: On inspection, there is no visible deformity of the patient's left wrist or elbow No erythema, edema, ecchymosis noted No lacerations, abrasions, open areas No evidence of infection Patient does report mild tenderness to palpation over the medial epicondyle and radial head of the left elbow No tenderness to palpation of the lateral epicondyle or olecranon process of left elbow Patient is able to extend the left elbow to approximately 10 degrees and flex to approximately 120 degrees without difficulty at this time Patient was able to actively pronate and supinate the left forearm without pain Good endpoints and no ligamentous laxity with varus and valgus testing of the left elbow Patient does report some discomfort radiating up into the shoulder with range of motion of the left arm Distal sensation intact Capillary refill brisk Assessment & Plan Assessment & Plan (1) Fracture of medial condyle of elbow: Code(s): S42.463A - Displaced fracture of medial condyle of unspecified humerus, initial encounter for closed fracture Category: Medical (2) Left radial head fracture: Code(s): S52.122A - Displaced fracture of head of left radius, initial encounter for closed fracture Category: Medical Plan 1. Nondisplaced radial head fracture of the left elbow 2. Minimally displaced medial epicondyle fracture of left elbow no ligamentous laxity Patient is educated about these injuries of the typical recovery course Patient was advised that he should completely discontinue wearing the sling Patient was advised that he can continue active pronation and supination at this time, but it should not be against resistance Patient was referred to physical therapy for range of motion and strengthening of the left elbow and shoulder Patient was also advised that he should avoid any heavy lifting in the left upper extremity immediately, but can gradually increase back to normal activity. Patient expresses understanding this and is amenable to this plan Patient will follow-up as needed with any acute concerns Orders: Orders PT Evaluation and Treatment Today S42.463A - Displaced fracture of medial condyle of unspecified humerus, initial encounter for closed fracture, S52.122A - Displaced fracture of head of left radius, initial encounter for closed fracture Coding Level of Care Code Est Pt Level 3 (42635) Diagnoses Fracture of medial condyle of elbow S42.463A Left radial head fracture S52.122A
== END 2024-12-22 13:16 | disposition home or self-care (01) ==
LOC: HO.HOS 12:56
DX: S42.462A Displaced fracture of medial condyle of left humerus, initial encounter for closed fracture (principal); S52.122A Displaced fracture of head of left radius, initial encounter for closed fracture
CPT/HCPCS: 99213

== ENCOUNTER → 2024-12-22 12:55 | Outpatient (BNVA) | payer OTHER, SELFPAY | DX: S42.46 Fracture of medial condyle of humerus (principal); S52.122D Displaced fracture of head of left radius, subsequent encounter for closed fracture with routine healing | CPT/HCPCS: 99212 ==

== ENCOUNTER 2025-02-23 11:00 | Outpatient (RCR) | payer OTHER, SELFPAY ==
--- NOTE | 2025-01-26 15:36 | MHC.OT.EP ---
[address] [phone] Occupational Therapy Plan of Care Patient Name: Topher Epstein Date of Evaluation: 01/26/25 Diagnosis: L fx of medial condyle elbow Pain Location: elbow / shoulder at is worse its a 10/10 Pain Score: 8 Pain Scale Used: Numeric (0 - 10) Aggravating Factors: movement; non - movemement Alleviating Factors: ibuprofen Assessment: Pt reports he fell on while chasing his dog outside ; [place] [facility] [place] w/ a fx of his L elbow. He reports he was placed in a sling and it was d/ charged shortly after the injury. Pt reports his ROM is good , but he still has pain and stiffness in hi shoulder and elbow. He presents today w/ good AROM, but decreased strength of his L UE. Pt would benefit from skilled OT therapy to decrease pain and increase strength and the functional use of his UE. 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 Thank you once again for your referral.
--- NOTE | 2025-02-23 11:24 | MHC.PT.DC ---
[facility] [place] Office [place] Office [place] [facility] [address] Lluvia Vivas 140 [facility] [phone] F: [phone] F: [phone] F: [phone] F: [phone] Physical Therapy Discharge Report Diagnosis: L fx of medial condyle elbow Date of Surgery: Date of Evaluation: Date of Discharge: Treatments to Date: Cancellations to Date: No Shows to Date: Discharge Status: Achieved Goals Independent with HEP Discharge Summary: Electronically signed by: Please sign and return to therapist. Thank you for your referral.
== END 2025-02-23 11:23 | disposition home or self-care (01) ==
LOC: HO.OT 11:00
PROVIDERS: PCP Internal Medicine
DX: S52.122D Displaced fracture of head of left radius, subsequent encounter for closed fracture with routine healing (principal); S42.462D Displaced fracture of medial condyle of left humerus, subsequent encounter for fracture with routine healing
CPT/HCPCS: 97110; 97140; 97166; 97535